=== PATIENT | female | born 1970 | race Caucasian/White ===

== ENCOUNTER → 2017-08-25 08:47 | Outpatient (CLI) | payer MEDICARE, SELFPAY ==
--- NOTE | 2017-08-25 | DI.CT.S_ITS ---
PROCEDURE: CT ABDOMEN PELVIS W CON INDICATIONS: Abdominal pain TECHNIQUE: After the administration of oral and intravenous contrast, 5 mm thick sections acquired from the diaphragms to the symphysis. 5 mm thick coronal and sagittal reformats were performed. For radiation dose reduction, the following was used: automated exposure control, adjustment of mA and/or kV according to patient size. Valsalva maneuver was utilized during the scanning. COMPARISON: [facility], CT, ABDOMEN WITHOUT CONTRAST, 02/20/2015, 11:40. [facility], CT, KIDNEY/ URETER/BLADDER, 05/26/2011, 16:04. FINDINGS: Image quality: Excellent. ABDOMEN: Lung bases: Lung bases are clear. Heart size is normal. Solid organs: Liver is normal in size and enhancement. Gallbladder has been previously resected. Biliary system is non-dilated. Pancreas enhances normally. Spleen is normal in size and enhancement. No adrenal nodules. Kidneys are normal in size and enhancement, without hydronephrosis. Peritoneum and bowel: Stomach, small bowel, and colon loops are normal in caliber and wall thickness. No free fluid or air. Nodes and vessels: No retroperitoneal or mesenteric adenopathy. Aorta and inferior vena cava are normal in caliber. Miscellaneous: No ventral hernias. PELVIS: Genitourinary: Bladder wall thickness is normal. There is a 3.3 cm left ovarian cyst, simple in appearance by CT criteria. 2 additional small cysts are seen in the uterine fundus area. Miscellaneous: No inguinal hernias or adenopathy. Bones: No suspicious bony lesions. No vertebral body compression fractures. IMPRESSION: No internal or body wall hernia is identified. A 3.3 cm left ovarian cyst, simple in appearance, and 2 small cysts at the upper uterine fundus measuring 8 mm and 13 mm respectively. A definite source of current abdominal pain is not seen. Dictated by: Brandyn Caceres M.D. on 08/25/2017 at 13:28 Approved by: Brandyn Caceres M.D. on 08/25/2017 at 13:35
== END ==
PROVIDERS: PCP Family Medicine; Visit Provider Surgery
DX: R10.9 Unspecified abdominal pain (principal); N83.202 Unspecified ovarian cyst, left side
CPT/HCPCS: 74177; Q9967

== ENCOUNTER 2017-10-06 13:54 | Observation (INO) | payer MEDICARE, SELFPAY ==
[2017-09-29 15:29] VITALS: BMI 38.0
[2017-10-05] VITALS (13 sets, daily range): BP systolic 113–138; BP diastolic 56–91; PULSE 78–93; RESP 14–20; TEMP 36.4–37.3; O2SAT 95–100; BMI 37.1
[2017-10-05] MEDS: LACTATED RINGERS 1,000 ML 100 ML IV (09:46)
--- NOTE | 2017-10-05 09:54 | PM.PREOP ---
Pre-operative Note Interval Note Pre-op Check: History & Physical Reviewed by Physician
--- NOTE | 2017-10-05 10:12 | PM.HP.1 ---
History of Present Illness Date Patient Seen: 10/05/17 Time Patient Seen: 10:12 Chief complaint: *OPB* [id number] [place] [id number] [facility] *OPB* Narrative: Patient is a 47-year-old scheduled for laparoscopic supracervical hysterectomy, bilateral salpingectomy, and excision of ovarian cysts This is being performed due to pelvic pain and myometrial cysts Patient History Medical History Anxiety (Chronic) Borderline hypertension (Chronic) Cervical spine disease (Chronic) Chronic pain (Chronic) Depression (Chronic) Factor V Leiden (Chronic) Fibromyalgia (Chronic) Head injury (Chronic 04/2017) Herpes (Chronic) History of headache (Chronic) Thyroid disorder (Chronic) TIA (transient ischemic attack) (Suspected 2012) Hematoma of right thigh (Resolved 2013) Colon's neuroma of left foot (Resolved 11/2010) Surgical History H/O carpal tunnel repair (Chronic) History of incisional hernia repair (Resolved 04/25/15) History of third molar tooth extraction (Resolved) S/P D&C (status post dilation and curettage) (Resolved 03/30/15) S/P endometrial ablation (Resolved 03/30/15) S/P foot surgery, left (Resolved 11/2010) Status post delivery (Resolved) Status post delivery (Resolved) Status post cholecystectomy (Resolved 2007) Status post dilation and curettage (Resolved) Status post laminectomy (Resolved 2014) Status post ovarian cystectomy (Resolved) Status post tonsillectomy and adenoidectomy (Resolved) Status post tubal ligation (Resolved) Family & Social History Tobacco & Substance use: Smoking Status Never smoker alcohol intake never Substance Use Type does not use Meds Home Medications Medication Instructions Recorded Confirmed Type escitalopram oxalate [Lexapro] 20 mg PO QDAY #90 tab 01/19/17 10/02/17 Rx albuterol sulfate [Ventolin HFA] 2 puff INH Q4H #1 ea 06/29/17 10/02/17 Rx trazodone 50 mg PO HS #90 tab 06/29/17 10/02/17 Rx acyclovir 400 mg PO SEE INSTRUCTIONS #90 tab 07/17/17 10/02/17 Rx levothyroxine [Synthroid] 0.075 mg PO QAM #90 tab 07/17/17 10/02/17 Rx enoxaparin 40 mg/0.4 mL 40 mg SUBCUT DAILY #5.6 ml 09/30/17 10/02/17 Rx subcutaneous syringe Allergies Allergy/AdvReac Type Severity Reaction Status Date / Time cephalexin [From KEFLEX] Allergy Severe ITCHING Unverified 10/02/17 14:32 cortez [CORTEZ] Allergy Severe ANAPHALATIC Unverified 10/02/17 14:32 Penicillins [PENICILLINS] Allergy Severe rash Unverified 10/02/17 14:32 Sulfa (Sulfonamide Allergy Severe rash Unverified 10/02/17 14:32 Antibiotics) [SULFA (SULFONAMIDE ANTIBIOTICS)] adhesive [ADHESIVE] Allergy Mild tape Unverified 10/02/17 14:32 bacitracin Allergy Mild rash Unverified 10/02/17 14:32 [From NEOSPORIN + PAIN RELIEF] erythromycin base Allergy Mild rash Unverified 10/02/17 14:32 [From ERYTHROCIN] fluoxetine [From PROZAC] Allergy Mild RASH, Unverified 10/02/17 14:32 NAUSEA ketorolac [KETOROLAC] Allergy Mild rash Unverified 10/02/17 14:32 neomycin Allergy Mild rash Unverified 10/02/17 14:32 [From NEOSPORIN + PAIN RELIEF] polymyxin B Allergy Mild rash Unverified 10/02/17 14:32 [From NEOSPORIN + PAIN RELIEF] pramoxine Allergy Mild rash Unverified 10/02/17 14:32 [From NEOSPORIN + PAIN RELIEF] promethazine [PROMETHAZINE] AdvReac Intermediate anxiety Unverified 10/02/17 14:32 Exam Vital Signs (past 8 hours): - 10/05/17 09:28 Temperature 97.6 F Pulse Rate 80 Respiratory Rate 16 Blood Pressure 133/91 H Pulse Oximetry 96 Oxygen Delivery Method Room Air Narrative Exam Narrative: HEENT: No thyromegaly, no anterior cervical or supraclavicular lymphadenopathy. Lungs:Clear to auscultation bilaterally, no wheezes. Cardiovascular: Regular rate and rhythm, no murmurs, rubs, or gallops. Abdomen: Well-healed Pfannenstiel scars. No hepatosplenomegaly. No masses palpable. External genitalia: Normal Vagina: Normal Cervix: Normal Bimanual exam: 10 Week size uterus. Mobile. Rectal: No masses. Assessment & Plan (1) Pelvic pain in female: Current visit: Yes Status: Acute Plan: Assessment/Plan Narrative: Assessment: 47-year-old with pelvic pain and myometrial cysts Status post endometrial ablation Ovarian cyst Plan: Laparoscopic supracervical hysterectomy with bilateral salpingectomy Excision of ovarian cysts The risks, benefits, and alternatives to the procedure were explained to the patient. The risks including bleeding, infection, injury to the bowel, bladder, or ureters. She also understands that there is a possibility of an open procedure. A full capital P AR-Q was held and consent form was signed.
--- NOTE | 2017-10-05 10:15 | P.HP_ITS ---
History of Present Illness Date Patient Seen: 10/05/17 Time Patient Seen: 10:12 Chief complaint: *OPB* [id number] [place] [id number] [facility] *OPB* Narrative: Patient is a 47-year-old scheduled for laparoscopic supracervical hysterectomy, bilateral salpingectomy, and excision of ovarian cysts This is being performed due to pelvic pain and myometrial cysts Patient History Medical History Anxiety (Chronic) Borderline hypertension (Chronic) Cervical spine disease (Chronic) Chronic pain (Chronic) Depression (Chronic) Factor V Leiden (Chronic) Fibromyalgia (Chronic) Head injury (Chronic 04/2017) Herpes (Chronic) History of headache (Chronic) Thyroid disorder (Chronic) TIA (transient ischemic attack) (Suspected 2012) Hematoma of right thigh (Resolved 2013) Colon's neuroma of left foot (Resolved 11/2010) Surgical History H/O carpal tunnel repair (Chronic) History of incisional hernia repair (Resolved 04/25/15) History of third molar tooth extraction (Resolved) S/P D&C (status post dilation and curettage) (Resolved 03/30/15) S/P endometrial ablation (Resolved 03/30/15) S/P foot surgery, left (Resolved 11/2010) Status post delivery (Resolved) Status post delivery (Resolved) Status post cholecystectomy (Resolved 2007) Status post dilation and curettage (Resolved) Status post laminectomy (Resolved 2014) Status post ovarian cystectomy (Resolved) Status post tonsillectomy and adenoidectomy (Resolved) Status post tubal ligation (Resolved) Family & Social History Tobacco & Substance use: Smoking Status Never smoker alcohol intake never Substance Use Type does not use Meds Home Medications Medication Instructions Recorded Confirmed Type escitalopram oxalate [Lexapro] 20 mg PO QDAY #90 tab 01/19/17 10/02/17 Rx albuterol sulfate [Ventolin HFA] 2 puff INH Q4H #1 ea 06/29/17 10/02/17 Rx trazodone 50 mg PO HS #90 tab 06/29/17 10/02/17 Rx acyclovir 400 mg PO SEE INSTRUCTIONS #90 tab 07/17/17 10/02/17 Rx levothyroxine [Synthroid] 0.075 mg PO QAM #90 tab 07/17/17 10/02/17 Rx enoxaparin 40 mg/0.4 mL 40 mg SUBCUT DAILY #5.6 ml 09/30/17 10/02/17 Rx subcutaneous syringe Allergies Allergy/AdvReac Type Severity Reaction Status Date / Time cephalexin [From KEFLEX] Allergy Severe ITCHING Unverified 10/02/17 14:32 cortez [CORTEZ] Allergy Severe ANAPHALATIC Unverified 10/02/17 14:32 Penicillins [PENICILLINS] Allergy Severe rash Unverified 10/02/17 14:32 Sulfa (Sulfonamide Allergy Severe rash Unverified 10/02/17 14:32 Antibiotics) [SULFA (SULFONAMIDE ANTIBIOTICS)] adhesive [ADHESIVE] Allergy Mild tape Unverified 10/02/17 14:32 bacitracin Allergy Mild rash Unverified 10/02/17 14:32 [From NEOSPORIN + PAIN RELIEF] erythromycin base Allergy Mild rash Unverified 10/02/17 14:32 [From ERYTHROCIN] fluoxetine [From PROZAC] Allergy Mild RASH, Unverified 10/02/17 14:32 NAUSEA ketorolac [KETOROLAC] Allergy Mild rash Unverified 10/02/17 14:32 neomycin Allergy Mild rash Unverified 10/02/17 14:32 [From NEOSPORIN + PAIN RELIEF] polymyxin B Allergy Mild rash Unverified 10/02/17 14:32 [From NEOSPORIN + PAIN RELIEF] pramoxine Allergy Mild rash Unverified 10/02/17 14:32 [From NEOSPORIN + PAIN RELIEF] promethazine [PROMETHAZINE] AdvReac Intermediate anxiety Unverified 10/02/17 14: 32 Exam Vital Signs (past 8 hours): - 10/05/17 09:28 Temperature 97.6 F Pulse Rate 80 Respiratory Rate 16 Blood Pressure 133/91 H Pulse Oximetry 96 Oxygen Delivery Method Room Air Narrative Exam Narrative: HEENT: No thyromegaly, no anterior cervical or supraclavicular lymphadenopathy. Lungs:Clear to auscultation bilaterally, no wheezes. Cardiovascular: Regular rate and rhythm, no murmurs, rubs, or gallops. Abdomen: Well-healed Pfannenstiel scars. No hepatosplenomegaly. No masses palpable. External genitalia: Normal Vagina: Normal Cervix: Normal Bimanual exam: 10 Week size uterus. Mobile. Rectal: No masses. Assessment & Plan (1) Pelvic pain in female: Current visit: Yes Status: Acute Plan: Assessment/Plan Narrative: Assessment: 47-year-old with pelvic pain and myometrial cysts Status post endometrial ablation Ovarian cyst Plan: Laparoscopic supracervical hysterectomy with bilateral salpingectomy Excision of ovarian cysts The risks, benefits, and alternatives to the procedure were explained to the patient. The risks including bleeding, infection, injury to the bowel, bladder , or ureters. She also understands that there is a possibility of an open procedure. A full capital P AR-Q was held and consent form was signed.
[2017-10-05] MEDS: CLINDAMYCIN 900 MG/50 ML PIGGYBACK 50 MG IV (10:55)
[2017-10-05] MEDS: BUPIVACAINE 0.5% W/ EPI (PF) 30 ML VIAL INJ (11:13)
--- NOTE | 2017-10-05 11:33 | SUR.OPER ---
Lithotomy on padded OR bed. [place] Pad Positioner under torso. Head on pillow, arms padded and tucked at sides. Legs secured in padded yellow fins stirrups.
[2017-10-05] MEDS: ROPIVACAINE 0.2% PF 2 MG/ML 10ML AMP 20 ML INJ (11:44)
--- NOTE | 2017-10-05 11:44 | PC.NURSE ---
Day shift: Pt not on AC unit at this time. Will do charting after Pt is seen by this entry writer.
--- NOTE | 2017-10-05 11:59 | PM.GYNOP.1 ---
Operative Date/Time/Diagnoses - Date of procedure: 10/05/17 Time of procedure: 11:59 Pre-op diagnosis: Pelvic pain Post-op diagnosis: same Procedure: Procedures Operation Date: 10/05/17 10:15 Actual Procedures Side Surgeon p Laparoscopic Supracervical Hysterectomy with Bilateral salpingectomy Not Applicable Hoa Galdamez MD Indications: Pelvic pain Surgeon: Hoa Galdamez Business Mail Entry Clerk: Edgar Ceballos Anesthesia Type: General and Local Operative Notes Findings: 6 week size anteverted uterus 1 cm simple ovarian cyst on the left ovary Tubes status post ligation bilaterally Normal liver Closure Type: primary Specimen(s): left tube, right tube and uterus Applied: catheter Estimated blood loss (mL): 5 Blood products transfused: none Procedure in detail: The patient was taken to the operating room where she was placed in the dorsal supine position. After adequate general endotracheal anesthesia was achieved, she was placed in the dorsal lithotomy position, and prepped and draped in the usual sterile fashion. A timeout was performed. A bivalve speculum was placed into the vagina and the anterior lip of the cervix grasped with a single-tooth tenaculum. The cervical os was sequentially dilated until the ZUMI uterine manipulator could pass easily into the endometrial cavity. The single-tooth tenaculum was removed from the anterior lip of the cervix, and the bivalve speculum was removed from the vagina. Attention was then turned to the abdomen where 6 mL of half percent Marcaine with epinephrine were injected in the umbilical fold. A 5 mm incision was made. The long Verhees needle was placed into the peritoneal cavity, and its placement confirmed by aspiration and drop test. The Verhees needle was removed. A long5 mm trocar was placed without difficulty. 2 other incisions were made midway between the pubic symphysis and umbilicus after 5 mL of half percent Marcaine with epinephrine were injected. These were 5 mm incisions. Two long 5 mm trochars were placed under direct visualization. The right tube was grasped with an atraumatic grasper. Using the plasma kinetic with settings of 40 W the mesosalpinx was cauterized and cut all the way down to the cornua of the uterus. The cornua of the uterus was then grasped with an atraumatic grasper. The utero-ovarian ligaments were cauterized and cut. The round ligament and broad ligament was cauterized and cut with plasma kinetic. Hemostasis was achieved. The bladder flap was created using the plasma kinetic with cautery and cut snf across. The uterine arteries on the right side were extensively cauterized with plasma kinetic. All of this was repeated on the left side. The remainder of the bladder flap was created using the plasma kinetic, and the bladder taken down off the lower uterine segment and cervix. The simple cyst on the left ovary was cauterized. Using the [place], the cervix was amputated from the uterus 2 cm above the uterosacral ligaments, after the ZUMI uterine manipulator was removed from the uterus. There was a small amount of bleeding noted from the posterior edge of the cervix, and this was cauterized for hemostasis. A sponge stick was placed into the vagina. 6 mL of half percent Marcaine with epinephrine were injected above the pubic symphysis. A 12 mm trocar was placed. The trocar was removed. The fascial incision was extended bluntly using a Sonya. An Endobag was placed through the suprapubic incision and the uterus placed into the Endobag. The Hamilton placed into the endobag. The uterus was hand morcellated in approximately 4 pieces. The Hamilton was removed from the bag. The Endobag was removed from the peritoneal cavity. The pelvis was copiously irrigated with warm normal saline. No bleeding was noted. The instruments were removed from the abdomen. The CO2 was allowed to escape. The suprapubic incision was closed on the fascia with 0 Vicryl. The subcutaneous layer was closed with 3 O Vicryl. All of the incisions were closed with 4-0 undyed Vicryl in a subcuticular fashion. Steri-Strips, 2 x 2 days, and op site were placed. The moistened sponge stick was removed from the vagina. Sponge, lap, and instrument counts were correct x-2. The patient tolerated the procedure well, was taken to PACU in stable condition. Complications: none Post-operative Condition: stable Disposition: PACU Plan for aftercare: To acute care after recovery
[2017-10-05] MEDS: HYDROMORPHONE 2 MG INJ 1 MG IM ×2 (12:16→12:22)
[2017-10-05] MEDS: ONDANSETRON 4 MG/2 ML INJ IV ×3 (12:19→23:00)
[2017-10-05] MEDS: LORazepam 2 MG/ML SYRINGE 0.25 MG IV (12:23)
[2017-10-05] MEDS: LACTATED RINGERS 1,000 ML 42 ML IV (12:26)
--- NOTE | 2017-10-05 13:04 | PC.NURSE ---
Day shift: Arrived on unit at approx 1245 from PACU. Lap sites CDI w/ no drainage. Heike p[atent w/ clear yellow. Agrees to not get OOB w/o help. SCD's tolerated. Grape Popsicle helping get rid of bad taste in mouth. Calm and cooperative w/ care. Daughter in room for support w/ Pt's 2 service dogs. VS ok. SpO2 95 RA. Oriented to room and call light. Call light in reach. Shown how to use I.S. as well.
[2017-10-05] MEDS: OXYCODONE/ACETAMINOPHEN 5/325 TABLET 2 TAB PO ×3 (13:28→21:06)
[2017-10-05] MEDS: DEXTROSE 5%-LACTATED RINGERS 1,000 ML 100 ML IV (13:28)
[2017-10-05] MEDS: KETOROLAC 30 MG/ML VIAL IV ×2 (13:40→17:34)
--- NOTE | 2017-10-05 14:27 | RT ---
Visited patient regarding her respiratory hx. Patient states she has reactive airway disease and only takes albuterol inhaler when needed. She states that the last time she took her inhaler was a month or more ago. Informed patient that she currently has an order for q4 hr Albuterol and patient stated that she did not want that, only for it to be available when needed. Will attempt to reach MD Galdamez and get authorization to change this to a prn order.
[2017-10-05] MEDS: METOCLOPRAMIDE 10 MG/2 ML INJ IV (17:37)
[2017-10-05] MEDS: DOCUSATE 250 MG CAPSULE PO (21:02)
[2017-10-05] MEDS: TRAZODONE 50 MG TABLET PO (21:02)
[2017-10-06] MEDS: KETOROLAC 30 MG/ML VIAL IV ×2 (00:04→05:08)
[2017-10-06] MEDS: DEXTROSE 5%-LACTATED RINGERS 1,000 ML 100 ML IV (00:05)
[2017-10-06] MEDS: OXYCODONE/ACETAMINOPHEN 5/325 TABLET 2 TAB PO ×5 (01:17→20:05)
[2017-10-06] MEDS: ONDANSETRON 4 MG/2 ML INJ IV ×3 (05:02→19:59)
[2017-10-06 05:15] VITALS: BP 111/59; PULSE 83; RESP 16; TEMP 36.7; O2SAT 99
[2017-10-06 06:05] LABS: Add Manual Diff / Slide Review NO; Basophils Percent Auto 0.1 % (0-2); Hematocrit 40.9 % (36-46); Hemoglobin 14.3 g/dL (12.0-16.0); Lymphocytes Percent Auto 7.1 % (25-40); Mean Corpuscular HGB Conc 34.9 % (30-36); Mean Corpuscular Hemoglobin 30.6 PG (26-34); Mean Corpuscular Volume 87.8 fL (80-100); Neutrophils Absolute Auto 10800 /uL (3000-5900); Neutrophils Percent Auto 85.8 % (50-75); Platelet Count 223 X10^3/uL (150-400); Red Blood Cell Count 4.66 X10^6/uL (4.0-5.2); Red Cell Distribution Width 12.3 % (11.6-14.8); White Blood Cell Count 12.6 X10^3/uL (4.5-11.0)
--- NOTE | 2017-10-06 06:55 | PC.NURSE ---
Addendum entered by Sayra Julien R.N. 10/06/17 06:58: Noticed in tordal is listed as an allergy. Asked pt which she replied no adverse reactions to previous doses. And reported adverse reaction from before hospital stay was mild rash/ itch. No adverse reaction noticed at this time. Pt also report reaction to regulan of severe itching. Will update allergy list. Original Note: [id number] Pt's dillon D/C at 0630. Femine pad had scant light sangousis blood loss estimated no greater than 1mL.
[2017-10-06 08:00] VITALS: BP 116/69; PULSE 85; RESP 16; TEMP 37; O2SAT 99
--- NOTE | 2017-10-06 09:58 | PC.NURSE ---
Day shift: Pt asleep. Did not give AM meds. Will give when she wakes up. She has voided >500ml this AM as well. Makes needs known proper. Call light in reach.
[2017-10-06] MEDS: DOCUSATE 250 MG CAPSULE PO (11:39)
[2017-10-06] MEDS: ENOXAPARIN 40 MG/0.4 ML SYRINGE SUBCUT (11:39)
[2017-10-06] MEDS: LEVOTHYROXINE 75 MCG TABLET PO (11:40)
[2017-10-06] MEDS: ESCITALOPRAM 10 MG TABLET 20 MG PO (11:40)
[2017-10-06] MEDS: IBUPROFEN 600 MG TABLET PO ×2 (12:53→22:50)
--- NOTE | 2017-10-06 15:21 | CM.DANOTE ---
DCP/Assessment: Reviewed chart. Patient is a 47yr old female admitted under [facility] for [facility] surgery performed by Dr. Galdamez. PCP is Dr. Cook. Primary payor is 1)Medicare. Met with patient explained CM/SW role. Patient alert and oriented during visit but uncomfortable with wash cloth over forehead. Patient also with 2 service dogs and friend Sanchez at bedside. Patient reports that she plans to return home when medically stable. Patient resides in [place] and has supportive family/friends nearby. Patient owns cane but does not use at baseline. Patient anticipates that she will need when she returns home. Patient changed to OBS status today. D/C anticipated within the next 24hrs. if medically stable. Patient does not anticipate any d/c planning needs. WALLPAPER INSTALLER left name/number of CM team on white board. P: Anticipate home when stable. CM team to follow closely. TIM Sainz Discharge Planning/Care Management CM Discharge Assessment Start: 10/06/17 15:16 Freq: Status: Active Protocol: Document 10/06/17 15:17 KJS (Rec: 10/06/17 15:21 KJS [id number]) Discharge Planning Assessment Assigned Garage Laborer TIM/Mildred History Provided By Patient Friend Has Patient been admitted in last 30 No days? Household Members family Type of transporation used prior to Drives own vehicle admit Comment Patient disabled and has 2 service dogs. Patient has had several surgeries. Independent with ADL's Yes Is patient alert and oriented? Yes Caregiver for Another No DME Already Rented / Owned Cane Discharge Plan Home Review Status In Process Next Review Type Discharge Review
[2017-10-06 16:03] VITALS: BP 138/91; PULSE 71; RESP 16; TEMP 36.8; O2SAT 96
[2017-10-06 19:55] VITALS: BP 135/77; RESP 18; TEMP 36.8; O2SAT 97
[2017-10-06] MEDS: ACYCLOVIR 400 MG TABLET PO (20:05)
[2017-10-06] MEDS: TRAZODONE 100 MG TABLET PO (22:49)
[2017-10-06 23:00] VITALS: O2SAT 98
[2017-10-07] VITALS (9 sets, daily range): BP systolic 121–131; BP diastolic 70–82; PULSE 65–69; RESP 14–20; TEMP 36.4–36.9; O2SAT 95–100
[2017-10-07] MEDS: OXYCODONE/ACETAMINOPHEN 5/325 TABLET 2 TAB PO ×5 (00:10→22:33)
[2017-10-07] MEDS: ONDANSETRON 4 MG/2 ML INJ IV ×4 (02:15→22:33)
--- NOTE | 2017-10-07 04:49 | PC.NURSE ---
sba to br, after pt request to go for a walk in [place] sba w/fww & DEMOLITION SPECIALIST, steady on her feet. prior to getting oob pain rated 6/10, 2 percocet given. after movement pain initially up to 9-10, back to bed after walk, pain receck = 8/10, states walked to [facility] station and felt a little dizzy came back to w/DEMOLITION SPECIALIST,dizziness resolved after short rest fresh ice pack given for surgical site, pain decr'd to 6/10 once percocet kicked in.
--- NOTE | 2017-10-07 07:55 | PM.PNPO.1 ---
Subjective Date Patient Seen: 10/06/17 Time Patient Seen: 13:32 Interval history: Patient is a 47-year-old postop # day 1. Status post laparoscopic supracervical hysterectomy and bilateral salpingectomy. Her pain is being adequately managed. She is having significant nausea this afternoon. She has not ambulated. She is tolerating a diet. Exam Vital Signs (past 8 hours): - 10/07/17 00:37 10/07/17 04:46 Temperature 98.4 F 97.8 F Pulse Rate 69 66 Respiratory Rate 14 16 Blood Pressure 127/70 H 131/76 H Pulse Oximetry 98 96 Oxygen Delivery Method Room Air Oxygen Flow Rate 0 Narrative Exam Narrative: Generally: Patient lying in bed, no acute distress Lungs: Clear to auscultation bilaterally Cardiovascular: Regular rate and rhythm Abdomen: Soft, good bowel sounds. Incisions: Clean dry and intact with op site Extremities: SCDs in place Objective Labs Result Diagrams: 10/06/17 05:18 Assessment & Plan Post-op (1) Status post laparoscopic supracervical hysterectomy: Current Visit: Yes Status: Acute Assessment and plan: Assessment: Postop day # 1. Status post laparoscopic supracervical hysterectomy with bilateral salpingectomy Persistent nausea Plan: Antiemetics Ambulation Anticipate discharge 10/07/2017 Postoperative Procedures Operation Date: 10/05/17 10:15 Actual Procedures Side Surgeon p Laparoscopic Supracervical Hysterectomy with Bilateral salpingectomy Not Applicable Hoa Galdamez MD Time Spent With Patient 25 - 35 minutes
[2017-10-07] MEDS: LEVOTHYROXINE 75 MCG TABLET PO (10:40)
[2017-10-07] MEDS: ENOXAPARIN 40 MG/0.4 ML SYRINGE SUBCUT (10:40)
[2017-10-07] MEDS: ESCITALOPRAM 10 MG TABLET 20 MG PO (10:40)
[2017-10-07] MEDS: DOCUSATE 250 MG CAPSULE PO ×2 (10:41→21:04)
[2017-10-07] MEDS: ACYCLOVIR 400 MG TABLET PO ×2 (10:41→21:04)
--- NOTE | 2017-10-07 13:54 | PC.NURSE ---
Pt slept until 1300
--- NOTE | 2017-10-07 13:54 | PC.NURSE ---
Addendum entered by Annette Alonzo R.N. 10/07/17 15:51: pt complained of vertigo when ambulating, sat back down and resolved. Pt does have a history of vertigo. She is sleeping soundly now. Original Note: Pt slept until 1030 this morning. Given Zofran and 2 percocet with am meds. Ambulated in halls and became dizzy. Pt has a hx of vertigo. Sat back down into wheelchair after ambulating and back to bed. Pt up and voided. Steady on feet with fww. into see patient and will be back later this afternoon to see her. 4 bandaide dressings to abdomen all cdi.
--- NOTE | 2017-10-07 17:51 | PM.PNPO.1 ---
Subjective Date Patient Seen: 10/07/17 Time Patient Seen: 17:51 Interval history: Patient tolerating a diet. She is significantly dizzy upon standing and walking. She is voiding without the catheter. Pain is well controlled. Exam Vital Signs (past 8 hours): - 10/07/17 11:32 10/07/17 16:56 10/07/17 17:25 Temperature 97.7 F 97.9 F Pulse Rate 66 69 Respiratory Rate 16 20 Blood Pressure 121/74 H 129/82 H Pulse Oximetry 98 95 97 Oxygen Delivery Method Room Air Oxygen Flow Rate 0 Narrative Exam Narrative: Generally: Patient is sitting up in bed, eating dinner, no acute distress Abdomen: Incisions clean dry and intact with op sites Extremities: SCDs in place Objective Labs Result Diagrams: 10/06/17 05:18 Assessment & Plan Post-op (1) Status post laparoscopic supracervical hysterectomy: Current Visit: Yes Status: Acute Assessment and plan: Assessment: 47-year-old postop day # 2 status post laparoscopic supracervical hysterectomy with continued dizziness upon standing and walking Plan: Plan discharge in the morning of 10/08/2017 Postoperative Procedures Operation Date: 10/05/17 10:15 Actual Procedures Side Surgeon p Laparoscopic Supracervical Hysterectomy with Bilateral salpingectomy Not Applicable Hoa Galdamez MD Postoperative day: 2 Postoperative status: other (Dizziness on standing and walking) Postoperative plan: routine post-op care Time Spent With Patient 25 - 35 minutes
[2017-10-07] MEDS: IBUPROFEN 600 MG TABLET PO (18:40)
[2017-10-07] MEDS: TRAZODONE 100 MG TABLET PO (21:04)
[2017-10-08] MEDS: IBUPROFEN 600 MG TABLET PO ×2 (01:26→11:23)
[2017-10-08 01:44] VITALS: BP 107/69; PULSE 62; RESP 15; TEMP 36.3; O2SAT 95
[2017-10-08] MEDS: OXYCODONE/ACETAMINOPHEN 5/325 TABLET 2 TAB PO ×3 (02:50→11:22)
[2017-10-08 04:20] VITALS: BP 132/80; PULSE 59; RESP 16; TEMP 36.6; O2SAT 96
[2017-10-08] MEDS: ONDANSETRON 4 MG/2 ML INJ IV ×2 (04:35→11:22)
[2017-10-08 04:51] VITALS: BP 132/80; PULSE 59; RESP 16; TEMP 36.6; O2SAT 96
[2017-10-08 08:00] VITALS: BP 113/47; PULSE 74; RESP 14; TEMP 36.8; O2SAT 98
[2017-10-08 08:40] VITALS: O2SAT 98
[2017-10-08] MEDS: ESCITALOPRAM 10 MG TABLET 20 MG PO (08:57)
[2017-10-08] MEDS: ACYCLOVIR 400 MG TABLET PO (08:57)
[2017-10-08] MEDS: DOCUSATE 250 MG CAPSULE PO (08:57)
[2017-10-08] MEDS: ENOXAPARIN 40 MG/0.4 ML SYRINGE SUBCUT (08:57)
[2017-10-08] MEDS: LEVOTHYROXINE 75 MCG TABLET PO (08:57)
[2017-10-08] MEDS: MAGNESIUM HYDROXIDE 30 ML UDC PO (08:57)
--- NOTE | 2017-10-08 14:02 | PC.NURSE ---
pt c/o pain and nausea. medicated with ibuprofen, zofran and percocet around 1130. pain did not get better on reassessment as she just got out of shower. however she was up moving around the room. she did finally have a BM, very large per pt report. d/c instructions provided to pt and friend. notified to call MD office to make f/u apt as well as if there are any other issues or concerns. Rx for percocet was provided to friend to go get filled and Rx for zofran was called into pharmacy from pt's PCP. pt left the floor around 1400 in a w/c with [employer] escort. States she took all her belongings with her.
--- NOTE | 2017-10-09 11:23 | PM.DS.1 ---
History of Present Illness Chief complaint: *OPB* [address] [place] [id number] [facility] *OPB* Narrative: Patient is a 47-year-old status post laparoscopic supracervical hysterectomy and bilateral salpingectomy for pelvic pain Discharge Providers Date of admission: 10/06/17 13:54 Primary care physician: Kalyani Cook MD Discharge provider: Hoa Galdamez MD Summary Discharge Diagnosis: Status post laparoscopic supracervical hysterectomy and bilateral salpingectomy Pelvic pain Hospital Course: Patient was admitted on 10/05/2017 for a scheduled laparoscopic supracervical hysterectomy with bilateral salpingectomy. On postop day # 1 patient had significant nausea and required another hospital day. On postop day # 2 patient had some dizziness on standing and walking which required another in hospital night stay Status at Discharge Functional status at discharge: independent ambulation Overall status at discharge: patient is progressing back to baseline Time Spent with Patient Less than 30 minutes Exam Vital Signs (past 8 hours): Oxygen Delivery Method Room Air Oxygen Flow Rate 0 Narrative Exam Narrative: Generally: A well-developed, well-nourished white female, no acute distress. Patient lying in bed Lungs: Clear to auscultation bilaterally Cardiovascular: Regular rate and rhythm Abdomen: Soft and flat. Good bowel sounds Incisions: Clean dry and intact with op site Extremities: SCDs in place Objective Labs Result Diagrams: 10/06/17 05:18 Discharge Plan Discharge Plan Patient Disposition: Home, Self-Care Discharge comment: Call with fever, chills or redness or drainage around incisions Ibuprofen 600mg every 6 hours as needed Discharge Med Rec/Prescriptions Prescriptions: New oxycodone-acetaminophen [Percocet] 5-325 mg tablet 2 tab PO Q4-6H PRN (Reason: pain) Qty: 30 RF: 0 Continue escitalopram oxalate [Lexapro] 20 MG tablet 20 mg PO QDAY Qty: 90 RF: 3 trazodone 50 MG tablet 50 mg PO HS Qty: 90 RF: 3 albuterol sulfate [Ventolin HFA] 90 MCG/PUFF HFA aerosol inhaler 2 puff INH Q4H Qty: 1 RF: 12 acyclovir 400 MG tablet 400 mg PO SEE INSTRUCTIONS Qty: 90 RF: 3 levothyroxine [Synthroid] 75 MCG tablet 0.075 mg PO QAM Qty: 90 RF: 3 enoxaparin [Lovenox] 40 mg/0.4 mL syringe 40 mg SUBCUT DAILY Qty: 5.6 RF: 0 No Action ondansetron 4 mg tablet,disintegrating 4 mg PO Q6-8H PRN (Reason: nausea and vomiting) Qty: 30 RF: 0 Follow up/Referrals: Hoa Galdamez MD [Physician] - Provider Discharge Instructions Diet: Diet as Tolerated Activity: No intercourse Wound Care Report to your healthcare provider any signs of infection, such as:: chills, fever, increased pain and unusual drainage Dressing: Remove outer plastic dressings and guaze after first shower Visit Report/Discharge Packet Instructions: DI for Hysterectomy, Oxycodone Stand Alone Forms: Surgery Discharge Visit Report Forms: Stroke Signs & Symptoms Discharge Data Primary Care Provider: Kalyani Cook Attending Provider: Hoa Galdamez Admit Date/Time: 10/06/17 13:54 Discharges patient from system. Discharge Date/Time: 10/08/17 14:00
== END 2017-10-08 14:00 | disposition home or self-care (01) ==
LOC: OR 10-08 07:30
PROVIDERS: Admitting Provider Obstetrics & Gynecology; PCP Family Medicine; Visit Provider Obstetrics & Gynecology
PROC: 0UT94ZL Resection of Uterus, Supracervical, Percutaneous Endoscopic Approach (ICD-10-PCS; CPT 58542; principal; 2017-10-05 10:15)
DX: N83.292 Other ovarian cyst, left side (principal); Z87.42 Personal history of other diseases of the female genital tract; R10.2 Pelvic and perineal pain; F41.9 Anxiety disorder, unspecified; M79.7 Fibromyalgia; D68.51 Activated protein C resistance; G89.29 Other chronic pain
CPT/HCPCS: 58542; 36415; 85025; G0378; J1100; J1170; J1650; J1885; J2060; J2250; J2405; J2704; J2765; J2795; J3010; J7121

== ENCOUNTER → 2017-12-07 08:59 | Outpatient (CLI) | payer MEDICARE, SELFPAY ==
[2017-10-05 13:09] VITALS: BMI 37.1
--- NOTE | 2017-12-07 09:02 | DI.US.S_ITS ---
ULTRASOUND OF RIGHT BREAST: 12/07/2017 CLINICAL: Palpable right breast lump. Comparison is made to exams dated: 12/07/2017 mammogram, 05/05/2017 mammogram, and 04/27/2014 mammogram - [facility]. Color flow ultrasound of the right breast was performed. Fitch scale images of the real-time examination were reviewed. IMPRESSION: NEGATIVE There is no sonographic evidence of malignancy. There is no abnormality seen in the right breast to correspond with the area of clinical concern, however, clinical correlation and clinical followup are recommended. A 1 year screening mammogram is recommended. This exam was interpreted at Station ID: [id number]. Electronically Signed By: Jose Sol M.D. cj/:12/07/2017 11:33:34 copy to: HEDY MCADAMS copy to: ANTHONY LENTZ letter sent: Clinical Evaluation Ultrasound BI-RADS: 1 Negative
--- NOTE | 2017-12-07 09:02 | DI.MG.S_ITS ---
UNILATERAL RIGHT DIGITAL DIAGNOSTIC MAMMOGRAM 3D/2D: 12/07/2017 CLINICAL: Right breast lump with pain. Comparison is made to exams dated: 05/05/2017 mammogram, 04/27/2014 mammogram, and 04/22/2013 mammogram - [facility]. The tissue of the right breast is predominantly fatty. No significant masses, calcifications, or other findings are seen in the breast. IMPRESSION: INCOMPLETE: NEEDS ADDITIONAL IMAGING EVALUATION There is no abnormality seen in the right breast to correspond with the area of clinical concern, however, ultrasound is recommended. This exam was interpreted at Station ID: [id number]. NOTE: For mammograms, a report in lay terms will be sent to the patient. Approximately 15% of breast malignancies will not be visualized mammographically. In the management of a palpable breast mass, a negative mammogram must not discourage biopsy of a clinically suspicious lesion. Electronically Signed By: Jose robles/lb:12/07/2017 11:33:07 copy to: HEDY MCADAMS copy to: ANTHONY LENTZ ACR BI-RADS Category 0: Incomplete [id number]
== END ==
PROVIDERS: PCP Internal Medicine; Visit Provider Internal Medicine
DX: R92.8 Other abnormal and inconclusive findings on diagnostic imaging of breast (principal); N64.4 Mastodynia; N63.10 Unspecified lump in the right breast, unspecified quadrant
CPT/HCPCS: 76642; 77065; G0279

== ENCOUNTER 2018-01-02 08:49 | Emergency (ER) | payer MEDICARE, SELFPAY ==
[2017-10-05 13:09] VITALS: BMI 37.1
--- NOTE | 2018-01-02 09:07 | DI.CT.S_ITS ---
PROCEDURE: CT HEAD/BRAIN WO CON INDICATIONS: headache TECHNIQUE: Noncontrast 4.5 mm thick angled axial sections acquired from the foramen magnum to the vertex, with coronal and sagittal reformats. For radiation dose reduction, the following was used: automated exposure control, adjustment of mA and/or kV according to patient size. COMPARISON: [facility], MR, STROKE PROTOCOL, 10/16/2011, 11:59. [facility], CT, HEAD WITHOUT CONTRAST, 02/06/2009, 11:59. [facility], CT, HEAD WITHOUT CONTRAST, 04/23/2017, 16:23. FINDINGS: Image quality: Excellent. CSF spaces: Basal cisterns are patent. No extra-axial fluid collections. Ventricles are normal in size and shape. Brain: No midline shift. No intracranial masses or hemorrhage. Fitch-white matter interface is normal. Skull and face: Calvarium and visualized facial bones are intact, without suspicious lesions. Sinuses: Visualized sinuses and mastoids are clear. IMPRESSION: Normal intracranial study. Stable from prior. Dictated by: Federico Garcia M.D. on 01/02/2018 at 9:59 Approved by: Federico Garcia M.D. on 01/02/2018 at 10:00
[2018-01-02 09:15] VITALS: BP 149/99; PULSE 87; RESP 12; TEMP 36.7; O2SAT 96; BMI 37.4
--- NOTE | 2018-01-02 09:32 | ED_ITS ---
HPI - Headache General Chief Complaint: Headache Stated Complaint: headache Time Seen by Provider: 01/02/18 08:50 Source: patient and family Mode of arrival: ambulatory Limitations: no limitations History of Present Illness HPI Narrative: 47-year-old nonsmoker with history of chronic neck and back pain presents to the emergency department with a chief complaint of a few days of the worst headache of her life. It has been gradually worsening and started at the base of her skull in now wraps around to the front. She has had a history of headaches and this presents a bit different than those. She does state that it is worse with bright lights, loud noises and motion. She states that her symptoms started after seeing a chiropractor a few days ago. She denies any neurologic symptoms such as blurred vision, trouble with speech nor numbness, tingling or weakness of her extremities. MD Complaint: headache Onset (ago): day(s) Onset description: gradual Location: frontal and occipital Severity: severe Quality: aching and throbbing Relieving factors: nothing Exacerbating factors: sitting/standing, light and noise Associated symptoms: nausea Treatments prior to arrival: prescription analgesic Related Data Previous Rx's Medication Instructions Recorded escitalopram oxalate [Lexapro] 20 mg PO QDAY #90 tab 01/19/17 albuterol sulfate [Ventolin HFA] 2 puff INH Q4H #1 ea 06/29/17 trazodone 50 mg PO HS #90 tab 06/29/17 acyclovir 400 mg PO SEE INSTRUCTIONS #90 tab 07/17/17 levothyroxine [Synthroid] 0.075 mg PO QAM #90 tab 07/17/17 enoxaparin 40 mg/0.4 mL 40 mg SUBCUT DAILY #5.6 ml 09/30/17 subcutaneous syringe ondansetron 4 mg disintegrating 4 mg PO Q6-8H PRN #30 tab 10/08/17 tablet trazodone 100 mg tablet 100 mg PO BEDTIME #30 tab 10/27/17 oxycodone-acetaminophen 5 mg-325 2 tab PO Q4-6H PRN #30 tab 11/18/17 mg tablet Allergies Allergy/AdvReac Type Severity Reaction Status Date / Time cephalexin [From KEFLEX] Allergy Severe ITCHING Verified 01/02/18 09:52 neomycin Allergy Mild rash Verified 01/02/18 09:56 [From NEOSPORIN + PAIN RELIEF] polymyxin B Allergy Mild rash Verified 01/02/18 09:56 [From NEOSPORIN + PAIN RELIEF] pramoxine Allergy Mild rash Verified 01/02/18 09:56 [From NEOSPORIN + PAIN RELIEF] fluoxetine [From PROZAC] AdvReac Intermediate Agitated Verified 01/02/18 09:52 promethazine [PROMETHAZINE] AdvReac Intermediate anxiety Verified 01/02/18 09:56 Review of Systems Review of Systems All systems reviewed & are unremarkable except as noted in HPI and below Constitutional Denies chills, Denies fever(s), Reports headache(s), Denies lethargy and Denies weakness Eyes Denies change in vision, Denies eye discharge, Denies irritation and Denies loss of vision ENT Ears, Nose, Mouth, and Throat: Denies change in voice, Reports headache(s), Denies neck pain and Denies sore throat Cardiovascular Denies chest pain, Denies irregular heart rhythm, Denies lightheadedness, Denies palpitations, Denies dyspnea, Denies dyspnea on exertion and Denies orthopnea Respiratory Denies cough, Denies dyspnea, Denies dyspnea on exertion and Denies wheezing Gastrointestinal Gastrointestinal: Denies abdominal pain, Denies change in bowel habits, Denies diarrhea, Reports nausea and Denies vomiting Genitourinary Denies hematuria, Denies flank pain, Denies urinary incontinence and Denies urinary urgency Musculoskeletal Denies neck pain Integumentary/Breasts Denies pruritus, Denies erythema, Denies rash and Denies wounds Neurologic Denies confusion, Reports headache(s), Denies loss of vision and Denies weakness Psychiatric Denies anxiety, Denies confusion, Denies depression, Denies homicidal ideation and Denies suicidal ideation Endocrine Denies palpitations Hematologic/Lymphatic Denies easy bruising Allergic/Immunologic Denies wheezing [facility] Medical History Anxiety (Chronic) Borderline hypertension (Chronic) Cervical spine disease (Chronic) Chronic pain (Chronic) Depression (Chronic) Factor V Leiden (Chronic) Fibromyalgia (Chronic) Head injury (Chronic 04/2017) Herpes (Chronic) History of headache (Chronic) Thyroid disorder (Chronic) TIA (transient ischemic attack) (Suspected 2012) Hematoma of right thigh (Resolved 2013) Colon's neuroma of left foot (Resolved 11/2010) Surgical History H/O carpal tunnel repair (Chronic) H/O bilateral salpingectomy (Resolved 10/05/17) History of incisional hernia repair (Resolved 04/25/15) History of third molar tooth extraction (Resolved) S/P D&C (status post dilation and curettage) (Resolved 03/30/15) S/P endometrial ablation (Resolved 03/30/15) S/P foot surgery, left (Resolved 11/2010) S/P laparoscopic supracervical hysterectomy (Resolved 10/05/17) Status post delivery (Resolved) Status post delivery (Resolved) Status post cholecystectomy (Resolved 2007) Status post dilation and curettage (Resolved) Status post laminectomy (Resolved 2014) Status post ovarian cystectomy (Resolved) Status post tonsillectomy and adenoidectomy (Resolved) Status post tubal ligation (Resolved) Family History Mother Hypertension Breast CA Father CVA (cerebral vascular accident) Diabetes mellitus Hypothyroidism Obesity Grandfather Prostate cancer Bone cancer Social History household members: family Smoking Status: Never smoker Exam Narrative Exam Narrative: GENERAL: Pleasant 47-year-old female in a dark room with her vazquez pulled up over her eyes, obviously uncomfortable HEAD: Atraumatic. Normocephalic. No temporal or scalp tenderness. EYES: Pupils equal round and reactive. Extraocular motions intact. No scleral icterus. No injection or drainage. ENT: Nose without bleeding, purulent drainage or septal hematoma. Throat without erythema, tonsillar hypertrophy or exudate. Uvula midline. Airway patent. NECK: Trachea midline. No JVD or lymphadenopathy. Supple, nontender, no meningeal signs. CARDIOVASCULAR: Regular rate and rhythm without murmurs, gallops, or rubs. RESPIRATORY: Clear to auscultation. Breath sounds equal bilaterally. No wheezes , rales, or rhonchi. GASTROINTESTINAL: Abdomen soft, non-tender, nondistended. No hepato-splenomegaly , or palpable masses. No guarding. EXTREMITIES: No clubbing, cyanosis, or edema. No joint tenderness, effusion, or edema noted. BACK: Nontender without deformity or crepitance. No flank tenderness. NEURO: AOx3. SKIN: No rash or erythema. NIH Stroke Scale 1a. LOC: Patient is alert and keenly responsive (0) 1b. LOC Questions: Patient answers both LOC questions accurately (0) 1c. LOC Commands: Patient performs both tasks correctly (0) 2. Best Gaze: Normal (0) 3. Visual: No visual loss (0) 4. Facial palsy: Normal symmetrical movements (0) 5. Motor arm: No drift (0) 6. Motor leg: No drift (0) 7. Limb ataxia: Absent (0) 8. Sensory: Normal (0) 9. Best language: No aphasia; normal (0) 10. Dysarthria: Normal (0) 11. Extinction and inattention: No abnormality (0) NIHSS: 0 Initial Vital Signs Initial Vital Signs: Vital Signs Temperature 98.0 F 01/02/18 09:15 Pulse Rate 87 01/02/18 09:15 Respiratory Rate 12 01/02/18 09:15 Blood Pressure 149/99 H 01/02/18 09:15 Pulse Oximetry 96 01/02/18 09:15 Course Orders Ordered: ED Orders 01/02/18 09:07 CT head/brain wo con Stat Discontinued Medications Dexamethasone (Decadron) 10 mg IV NOW ONE Stop: 01/02/18 09:07 Last Admin: 01/02/18 09:40 Dose: 10 mg Diphenhydramine HCl (Benadryl) 25 mg IV NOW ONE Stop: 01/02/18 09:07 Last Admin: 01/02/18 09:40 Dose: 25 mg Sodium Chloride (Normal Saline 0.9%) 1,000 mls @ 1,000 mls/hr IV BOLUS ONE Stop: 01/02/18 10:05 Last Admin: 01/02/18 09:39 Dose: 1,000 mls/hr Ketorolac Tromethamine (Toradol) 15 mg IV NOW ONE Stop: 01/02/18 10:18 Last Admin: 01/02/18 10:32 Dose: 15 mg Metoclopramide HCl (Reglan) 10 mg IV NOW ONE Stop: 01/02/18 09:07 Last Admin: 01/02/18 09:41 Dose: 10 mg Reevaluation(s) Reevaluation #1: Head CT ordered given description of headache as most severe of her life and different than typical headache Reevaluation #2: Patient starting to feel some relief after the 1st round of medications. Now that head CT is back and normal Toradol will be added Vital Signs - 8 hr 01/02/18 09:15 01/02/18 10:04 Temperature 98.0 F 98.0 F Pulse Rate 87 87 Respiratory Rate 12 12 Blood Pressure 149/99 H 149/99 H Pulse Oximetry 96 96 MDM - Headache Differential Diagnosis Differential diagnosis: Likely migraine, tension headache, subarachnoid hemorrhage, headache, meningitis and sinusitis Lab Data Point of Care Testing Glucose POC [address] scan - head: Radiologist's impression: [address] [address] [address] Scan Report Signed Patient: Bisi López LMR#: [id number] : 1970Acct:[id number] Age/Sex: 47 / FDate of Service: 01/02/18 Loc: ED Accession Number: [id number] Procedure: CT head/brain wo con Ordering Provider: Earle Real D.O. PROCEDURE: CT HEAD/BRAIN WO CON INDICATIONS: headache TECHNIQUE: Noncontrast 4.5 mm thick angled axial sections acquired from the foramen magnum to the vertex, with coronal and sagittal reformats. For radiation dose reduction, the following was used: automated exposure control, adjustment of mA and/or kV according to patient size. COMPARISON: [facility], MR, STROKE PROTOCOL, 10/16/2011, 11:59. [facility], CT, HEAD WITHOUT CONTRAST, 02/06/2009, 11:59. [facility], CT, HEAD WITHOUT CONTRAST, 04/23/2017, 16:23. FINDINGS: Image quality: Excellent. CSF spaces: Basal cisterns are patent. No extra-axial fluid collections. Ventricles are normal in size and shape. Brain: No midline shift. No intracranial masses or hemorrhage. Fitch-white matter interface is normal. Skull and face: Calvarium and visualized facial bones are intact, without suspicious lesions. Sinuses: Visualized sinuses and mastoids are clear. IMPRESSION: Normal intracranial study. Stable from prior. Dictated by: Federico Garcia M.D. on 01/02/2018 at 9:59 Approved by: Federico Garcia M.D. on 01/02/2018 at 10:00 [facility] Narrative Medical decision making narrative: Has tremendous improvement symptoms after above-stated therapies. CT shows no change, patient's neurologic exam is completely at baseline. She is tender to palpation on her occiput and states she has had some stressful scenarios at home and she often becomes tense in her shoulders. Additionally she had a different type of chiropractic manipulation of shingles ago. Was seen these 2 scenarios likely contributed to the patient' s tension-type headache Discharge Plan Departure Patient Disposition: Home Clinical Impression: Headache Instructions: DI for Headache Activity Restrictions/Additional Instructions: *You have been diagnosed with [ acute tension type headache ] *What to do: *Take medications as directed *Follow up with your primary care provider in 2-3 days, call for an appointment. Let them know you were seen in the Emergency Department and that we ask that you be seen in follow up *Return to ER if you should have any new, worsening or concerning symptoms Prescriptions: No Action escitalopram oxalate [Lexapro] 20 MG tablet 20 mg PO QDAY Qty: 90 RF: 3 trazodone 50 MG tablet 50 mg PO HS Qty: 90 RF: 3 albuterol sulfate [Ventolin HFA] 90 MCG/PUFF HFA aerosol inhaler 2 puff INH Q4H Qty: 1 RF: 12 acyclovir 400 MG tablet 400 mg PO SEE INSTRUCTIONS Qty: 90 RF: 3 levothyroxine [Synthroid] 75 MCG tablet 0.075 mg PO QAM Qty: 90 RF: 3 ondansetron 4 mg tablet,disintegrating 4 mg PO Q6-8H PRN (Reason: nausea and vomiting) Qty: 30 RF: 0 enoxaparin [Lovenox] 40 mg/0.4 mL syringe 40 mg SUBCUT DAILY Qty: 5.6 RF: 0 trazodone 100 mg tablet 100 mg PO BEDTIME Qty: 30 RF: 3 oxycodone-acetaminophen [Percocet] 5-325 mg tablet 2 tab PO Q4-6H PRN (Reason: pain) Qty: 30 RF: 0 Referrals: Shannan Hidalgo MD [Primary Care Provider] -
[2018-01-02] MEDS: SODIUM CHLORIDE 0.9% 1,000 ML 1000 ML IV (09:39)
[2018-01-02] MEDS: diphenhydrAMINE 50 MG/ML VIAL 25 MG IV (09:40)
[2018-01-02] MEDS: DEXAMETHASONE 10 MG/ML VIAL IV (09:40)
[2018-01-02] MEDS: METOCLOPRAMIDE 10 MG/2 ML INJ IV (09:41)
[2018-01-02 10:04] VITALS: BP 149/99; PULSE 87; RESP 12; TEMP 36.7; O2SAT 96; BMI 37.4
[2018-01-02] MEDS: KETOROLAC 60 MG/2 ML VIAL 15 MG IV (10:32)
[2018-01-02 11:07] VITALS: BP 123/57; PULSE 80; O2SAT 97
[2018-01-02 11:35] VITALS: BP 123/57; PULSE 80; RESP 12; O2SAT 97
== END 2018-01-02 11:25 | disposition home or self-care (01) ==
PROVIDERS: Emergency Provider Emergency Medicine; PCP Family Medicine
DX: R51 Headache (principal)
CPT/HCPCS: 70450; 82962; 96361; 96374; 96375; 99283; 99284; J1100; J1200; J1885; J2765

== ENCOUNTER → 2018-01-12 10:46 | Outpatient (CLI) | payer MEDICARE, SELFPAY ==
[2017-10-05 13:09] VITALS: BMI 37.1
[2018-01-12 12:23] LABS: Cholesterol 191 mg/dL (140-199); Glucose 88 mg/dL (70-100); HDL Cholesterol 43 mg/dL (40-60); LDL Cholesterol Calculated 104 mg/dL (<100); Triglycerides 221 mg/dL (35-150)
== END ==
PROVIDERS: PCP Family Medicine; Visit Provider Family Medicine
DX: Z13.1 Encounter for screening for diabetes mellitus (principal); Z13.220 Encounter for screening for lipoid disorders
CPT/HCPCS: 36415; 80061; 82947

== ENCOUNTER → 2018-01-25 16:38 | Outpatient (CLI) | payer MEDICARE, SELFPAY ==
[2017-10-05 13:09] VITALS: BMI 37.1
--- NOTE | 2018-01-25 16:43 | DI.MRI.S_ITS ---
PROCEDURE: MR THORACIC SPINE WO CON INDICATIONS: chronic back pain with radiculopathy and paresthesia TECHNIQUE: Noncontrast sagittal T1 spine echo and T2 fast spin echo, sagittal STIR, axial T1 and T2 fast spin echo through the thoracic spine. COMPARISON: [facility], CR, WRIST MINIMUM 3 VIEWS LEFT, 07/17/2016, 19:06. [facility], , SHOULDER MINIMUM 2 VIEW LEFT, 07/08/2016, 10:55. [facility], , T-SPINE WITHOUT CONTRAST, 10/26/2012, 17:16. FINDINGS: Image quality: Excellent. Alignment and Curvature: There is normal bony alignment. Bone Marrow: Marrow is of normal overall signal. No acute vertebral body compression fractures. Spinal Cord: Visualized spinal cord is normal in size and signal. Paraspinous Soft Tissues: No paravertebral masses. Miscellaneous: At the T6-T7 level, endplate irregularity is seen. Reactive marrow endplate changes are seen, which demonstrate mixed T1 weighted and T2-weighted signal, and are attributed to a combination of edema and fatty metaplasia (Modic type I and Modic type II changes). Mild disc bulge is seen at this level. Mild central canal narrowing is seen, with minimal mass effect upon the ventral spinal cord. No significant neural foraminal narrowing is seen. At the T7-T8 level, there is mild disc bulge seen, with minimal central canal narrowing, with minimal mass effect upon the ventral spinal cord. No neural foraminal narrowing seen. IMPRESSION: Mid thoracic degenerative change is seen, which is similar to 2013. Dictated by: Federico Garcia M.D. on 01/25/2018 at 17:24 Approved by: Federico Garcia M.D. on 01/25/2018 at 17:28
--- NOTE | 2018-01-25 16:43 | DI.MRI.S_ITS ---
PROCEDURE: MR CERVICAL SPINE WO CON INDICATIONS: chronic back pain with radiculopathy and paresthesia TECHNIQUE: Noncontrast sagittal T1 spin echo and T2 fast spin echo, sagittal STIR, foraminal oblique sagittal T2 fast spin echo, and axial gradient echo or T2 fast spin echo through the cervical spine. COMPARISON: , MR, C-SPINE WITHOUT CONTRAST, 10/26/2012, 16:55. , MR, MR LUMBAR SPINE WO CON, 01/25/2018, 17:35. , MR, MR THORACIC SPINE WO CON, 01/25/2018, 17:11. , MR, C-SPINE WITHOUT CONTRAST, 08/14/2015, 17:29. FINDINGS: Image quality: Excellent. Alignment and Curvature: There is normal bony alignment. Bone Marrow: Marrow demonstrates normal overall signal. Spinal Cord: Visualized spinal cord has normal size and signal. No cerebellar tonsillar herniation. Paraspinous Soft Tissues: No paravertebral masses. Prevertebral soft tissues are normal in thickness. C2-C3: No significant abnormality is seen. C3-C4: The disc height is well-preserved. Loss of disc signal is seen at this level. Mild to moderate disc osteophyte complex is seen. Mild to moderate facet hypertrophy is seen. Mild bilateral neural foraminal narrowing is seen. Mild central canal narrowing is seen. C4-C5: The disc height is relatively well-preserved. Mild to moderate disc osteophyte complex is seen. Mild to moderate facet hypertrophy is seen. There is minimal right-sided and no left-sided neural foraminal narrowing seen. Minimal to mild central canal narrowing is seen. When comparison is made with the prior examination, these findings are similar. C5-C6: Moderate loss of disc height is seen. Loss of disc signal is seen. Moderate disc osteophyte complex is seen, which is eccentric to the left. Uncovertebral joint hypertrophy is seen at this level. Mild to moderate facet hypertrophy is seen. Moderate bilateral neural foraminal narrowing is seen, left worse than right. At least moderate central canal narrowing is seen, with associated mass effect upon the ventral spinal cord. These degenerative changes have progressed compared to 2016. C6-C7: The disc height is well-preserved. Loss of disc signal is seen at this level. Mild to moderate disc osteophyte complex is seen. Mild to moderate facet hypertrophy is seen. Moderate bilateral neural foraminal narrowing is seen. Mild central canal narrowing is seen. There has been progression compared to 2016. C7-T1: No significant abnormality is seen. Similar to prior. IMPRESSION: Multiple levels of cervical spine degenerative change are seen, which have progressed at the C5-C6 and C6-C7 levels compared to 2016. Dictated by: Federico Garcia M.D. on 01/25/2018 at 17:20 Approved by: Federico Garcia M.D. on 01/25/2018 at 17:24
--- NOTE | 2018-01-25 16:43 | DI.MRI.S_ITS ---
PROCEDURE: MR LUMBAR SPINE WO CON INDICATIONS: chronic back pain with radiculopathy and paresthesia TECHNIQUE: Noncontrast sagittal T1 spin echo and T2 fast echo, sagittal STIR, axial T1 and T2 fast spin echo through the lumbar spine. In cases with scoliosis, additional coronal T2 fast spin echo may be performed. COMPARISON: [facility], MR, L-SPINE WITHOUT CONTRAST, 10/26/2012, 17:31. [facility], MR, L-SPINE WITHOUT CONTRAST, 03/14/2015, 10:37. [facility], MR, MR THORACIC SPINE WO CON, 01/25/2018, 17:11. [facility], MR, MR CERVICAL SPINE WO CON, 01/25/2018, 16:56. [facility], MR, L-SPINE WITHOUT CONTRAST, 08/14/2015, 17:50. FINDINGS: Image quality: Excellent. Alignment and Curvature: There is normal bony alignment. Bone Marrow: Marrow is of normal overall signal. No acute vertebral body compression fractures. Spinal Cord: Conus medullaris terminates at the L1 level. Visualized cord demonstrates normal signal and size. Paraspinous Soft Tissues: No paravertebral masses. T12-L1: Normal appearance. L1-L2: Normal appearance. L2-L3: Mild loss of disc height is seen. Loss of disc signal is seen. Ipib-kz-zpefiagt disc bulge is seen. Mild facet joint hypertrophy is seen. Mild bilateral neural foraminal narrowing is seen. Minimal central canal narrowing is seen. Stable from the prior study. L3-L4: Mild loss of disc height is seen. Loss of disc signal is seen. Mild to moderate disc bulge is seen, which is eccentric to the left. There is mild left-sided and no significant right-sided neural foraminal narrowing seen. No significant canal narrowing is seen. Stable from the prior study. L4-L5: The disc height is well-preserved. Loss of disc signal is seen at this level. Mild to moderate disc bulge is seen. Moderate facet joint hypertrophy is seen. No significant neural foraminal or central canal narrowing are seen. The previously seen neural foraminal narrowing has improved. L5-S1: Mild loss of disc height is seen. Loss of disc signal is seen. Mild generalized disc bulge is seen. Mild facet joint hypertrophy is seen. No significant neural foraminal or central canal narrowing are seen. The previously seen neural foraminal narrowing has improved. IMPRESSION: Interval improvement in neural foraminal narrowing at L4-L5 and L5-S1, compared to 2016. Dictated by: Federico Garcia M.D. on 01/25/2018 at 17:28 Approved by: Federico Garcia M.D. on 01/25/2018 at 17:33
== END ==
PROVIDERS: PCP Family Medicine; Visit Provider Family Medicine
DX: M50.11 Cervical disc disorder with radiculopathy, high cervical region (principal); M51.14 Intervertebral disc disorders with radiculopathy, thoracic region; M51.16 Intervertebral disc disorders with radiculopathy, lumbar region; M51.17 Intervertebral disc disorders with radiculopathy, lumbosacral region; M48.02 Spinal stenosis, cervical region; M48.061 Spinal stenosis, lumbar region without neurogenic claudication; M48.07 Spinal stenosis, lumbosacral region; M54.9 Dorsalgia, unspecified; R20.0 Anesthesia of skin; G89.29 Other chronic pain
CPT/HCPCS: 72141; 72146; 72148

== ENCOUNTER 2018-03-19 07:40 | Day surgery (SDC) | payer MEDICARE, SELFPAY ==
[2017-10-05 13:09] VITALS: BMI 37.1
[2018-03-17 10:09] VITALS: BMI 40.2
[2018-03-19] VITALS (8 sets, daily range): BP systolic 121–152; BP diastolic 73–108; PULSE 72–91; RESP 12–16; TEMP 36.2–36.6; O2SAT 94–96; BMI 40.2
--- NOTE | 2018-03-19 | PATH_ITS ---
[facility] Accession Number: [id number] . 01 Material submitted: . RIGHT VULVAR CYST . 02 Diagnosis: Mass From Right Vulvar Area: Mature adipose tissue consistent with lipoma, negative for atypia. No cyst identified. MRV/03/22/2018 . 02 Electronically signed: . Enzo Zaman MD, Pathologist NPI- [id number] . 01 Gross description: . Received one formalin-filled container labeled with the patient's name and labeled R vulvar cyst. The specimen consists of a 1.3 x 1.0 x 0.7 cm, light yellow-valentine portion of soft tissue which is inked, sectioned into four pieces, and entirely submitted in cassettes A1 and A2. ([id number]) /FRR . 02 Pathologist provided ICD-10: D17.39 . 02 CPT . 554092 Performed at: 01 [facility] [address] [id number] MD Kel Hill MD Phone: [phone] Performed at: [facility] [address] [place], [place] [id number] MD Abbey Dixon MD Phone: [phone]
[2018-03-19] MEDS: LACTATED RINGERS 1,000 ML 42 ML IV (07:58)
--- NOTE | 2018-03-19 08:18 | SUR.OPER ---
Lithotomy on padded OR bed, head on pillow, arms secured on padded arm boards at <90 degrees abduction. Legs secured in padded yellow fins stirrups.
[2018-03-19] MEDS: FAMOTIDINE 20 MG/50 ML PIGGYBACK 200 MG IV (08:24)
--- NOTE | 2018-03-19 08:27 | PM.PREOP ---
Pre-operative Note Interval Note Pre-op Check: Yes History & Physical exam performed today by Physician Changes: No
[2018-03-19] MEDS: BUPIVACAINE 0.5% W/ EPI (PF) VIAL 30 ML INJ (08:28)
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
[2018-03-19] MEDS: ONDANSETRON 4 MG/2 ML INJ IV (09:24)
[2018-03-19] MEDS: HYDROMORPHONE 2 MG INJ 0.5 MG IV ×4 (09:29→09:58)
[2018-03-19] MEDS: METOCLOPRAMIDE 10 MG/2 ML INJ IV (09:51)
[2018-03-19] MEDS: LACTATED RINGERS 1,000 ML 100 ML IV (09:54)
--- NOTE | 2018-03-20 10:09 | PM.GYNOP.1 ---
Operative Date/Time/Diagnoses Date of procedure: 03/19/18 Time of procedure: 09:30 Pre-op diagnosis: Right vulvar mass Post-op diagnosis: same Procedure: Procedures Operation Date: 03/19/18 08:45 Actual Procedures Side Surgeon p Excision Right vulvar cyst Hoa Galdamez MD Indications: Painful right vulvar mass Surgeon: Hoa Galdamez Anesthesia Type: General (LMA) Operative Notes Findings: 2 cm right vulvar mass Closure Type: primary Specimen(s): other (Right vulvar mass) Estimated blood loss (mL): 2 Blood products transfused: none Procedure in detail: After informed consent was obtained, the patient was taken to the operating room where she was placed in the dorsal supine position. After adequate LMA general anesthesia was achieved, she was placed in the dorsal lithotomy position, and prepped and draped in the usual sterile fashion. 6 cc of 0.25% Marcaine with epinephrine were injected under the skin over the mass. A 1 cm incision was made. The mass was grasped with an Allis clamp. The mass was dissected out with Metzenbaum scissors. The Bovie was used for hemostasis. The deep tissue was closed with 2 0 Vicryl with 2 simple interrupted sutures. The skin was closed with 4 0 chromic in a subcuticular fashion. Hemostasis was achieved. Sponge, lap, and instrument counts were correct x2. The patient tolerated the procedure well, and was taken to PACU in stable condition. Complications: none Post-operative Condition: stable Disposition: PACU Plan for aftercare: Home after recovery
== END 2018-03-19 10:28 | disposition home or self-care (01) ==
PROVIDERS: PCP Family Medicine; Visit Provider Obstetrics & Gynecology
PROC: (CPT 56620; principal; 2018-03-19 08:45)
DX: D17.39 Benign lipomatous neoplasm of skin and subcutaneous tissue of other sites (principal); E66.9 Obesity, unspecified; F17.210 Nicotine dependence, cigarettes, uncomplicated; R10.2 Pelvic and perineal pain
CPT/HCPCS: 56620; 11422; 88304; J1100; J1170; J2250; J2405; J2704; J2765; J3010

== ENCOUNTER → 2018-04-20 10:22 | Outpatient (CLI) | payer MEDICARE, MEDICAID, SELFPAY ==
[2017-10-05 13:09] VITALS: BMI 37.1
[2018-04-20 12:02] LABS: Free T4, Direct Thyroxine 0.89 ng/dL (0.78-2.19)
[2018-04-20 12:16] LABS: Thyroid Stimulating Hormone 4.18 uIU/mL (0.47-4.68)
== END ==
PROVIDERS: PCP Family Medicine; Visit Provider Family Medicine
DX: E03.9 Hypothyroidism, unspecified (principal); E04.1 Nontoxic single thyroid nodule
CPT/HCPCS: 36415; 84439; 84443; 84481

== ENCOUNTER 2018-05-26 16:58 | Emergency (ER) | payer MEDICARE, SELFPAY ==
[2017-10-05 13:09] VITALS: BMI 37.1
[2018-05-26 17:02] VITALS: BP 167/100; PULSE 88; RESP 15; TEMP 36.3; O2SAT 100; BMI 39.0
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
--- NOTE | 2018-05-26 17:40 | DI.MRI.S_ITS ---
PROCEDURE: MR LUMBAR SPINE WO CON INDICATIONS: Pain into sacral/lumbar area after ground level fall. Bilateral lateral thigh numbness TECHNIQUE: Noncontrast sagittal T1 spin echo and T2 fast echo, sagittal STIR, axial T1 and T2 fast spin echo through the lumbar spine. Axial and oblique coronal T1 spin echo and STIR through the sacrum. In cases with scoliosis, additional coronal T2 fast spin echo may be performed. COMPARISON: [facility], , MR LUMBAR SPINE WO CON, 01/25/2018, 17:35. FINDINGS: Image quality: Excellent. Alignment and Curvature: There is normal bony alignment. Bone Marrow: Marrow is of normal overall signal. No acute vertebral body compression fractures. No sacral fractures. Spinal Cord: Conus medullaris terminates at the L1 level. Visualized cord demonstrates normal signal and size. Paraspinous Soft Tissues: No paravertebral masses. L1-L2: Normal appearance. L2-L3: Slight decreased intervertebral disc space and mild diffuse disc bulge is seen with bilateral facet arthrosis. Mild central canal stenosis and bilateral neuroforaminal narrowing is again noted, unchanged or minimally progressed since previous study. L3-L4: Diffuse disc bulge and bilateral facet arthrosis is seen with no significant central canal stenosis. Mild left-sided neuroforaminal narrowing is again seen and unchanged from previous study. L4-L5: Broad-based disc bulge and bilateral facet arthrosis is seen. No significant central canal stenosis or neuroforaminal narrowing is seen. L5-S1: There is mild diffuse disc bulge and bilateral facet arthrosis with no significant central canal stenosis or neuroforaminal narrowing. Sacrum: Sacral neural foramina appear normal throughout. Superior to the piriformis muscles, the pre-plexal structures appear normal, including the lumbosacral trunk and S1 root. Just anterior to the piriformis muscles, the sacral plexus proper demonstrates normal morphology (lumbosacral trunk, S1 to S3 nerve roots). Inferior to the piriformis muscles, the sciatic nerves appear normal. IMPRESSION: 1. No acute compression fracture or spondylolisthesis of lumbar spine. No acute sacral fracture. 2. Mild degenerative disc bulge at L2-3 through L5-S1 levels with bilateral facet arthrosis. Mild central canal stenosis and bilateral neural foraminal narrowing is noted at L2-3 level. Mild left-sided neural foraminal narrowing is seen at L3-4 level. Findings are not significantly changed from 01/25/18 study. Dictated by: Tanner Rodriguez M.D. on 05/26/2018 at 18:53 Approved by: Tanner Rodriguez M.D. on 05/26/2018 at 18:57
[2018-05-26 17:45] VITALS: BP 137/90; PULSE 82; RESP 17; O2SAT 96
[2018-05-26 18:30] VITALS: BP 143/75; PULSE 84; O2SAT 96
[2018-05-26] MEDS: HYDROCODONE/ACET 5/325 TABLET 1 TAB PO (18:34)
[2018-05-26] MEDS: ONDANSETRON 4 MG ODT SL (18:41)
--- NOTE | 2018-05-26 19:17 | PC.NURSE ---
Pt slipped outside on 05/23/18, numbness and tingling in both of her legs have gotten progressively worse since the initial fall.
[2018-05-26 19:20] VITALS: BP 140/101; PULSE 80; RESP 16; O2SAT 97
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
[2018-05-26 19:43] VITALS: BP 140/101; PULSE 82; RESP 16; O2SAT 94
== END 2018-05-26 19:44 | disposition home or self-care (01) ==
PROVIDERS: Emergency Provider Nurse Practitioner Family; PCP Family Medicine
DX: M54.42 Lumbago with sciatica, left side (principal); W01.0XXA Fall on same level from slipping, tripping and stumbling without subsequent striking against object, initial encounter
CPT/HCPCS: 72148; 99283

== ENCOUNTER → 2018-05-31 11:07 | Outpatient (CLI) | payer MEDICARE, SELFPAY ==
[2017-10-05 13:09] VITALS: BMI 37.1
--- NOTE | 2018-05-31 | DI.MG.S_ITS ---
BILATERAL DIGITAL SCREENING MAMMOGRAM 3D/2D WITH CAD: 05/31/2018 CLINICAL: Routine screening. Family history of breast cancer. Comparison is made to exams dated: 12/07/2017 mammogram, 05/05/2017 mammogram, 04/27/2014 mammogram, and 04/22/2013 mammogram - [facility]. The tissue of both breasts is predominantly fatty. Current study was also evaluated with a Computer Aided Detection (CAD) system. No significant masses, calcifications, or other findings are seen in either breast. There has been no significant interval change. IMPRESSION: NEGATIVE There is no mammographic evidence of malignancy. A 1 year screening mammogram is recommended. This exam was interpreted at Station ID: [id number]. NOTE: For mammograms, a report in lay terms will be sent to the patient. Approximately 15% of breast malignancies will not be visualized mammographically. In the management of a palpable breast mass, a negative mammogram must not discourage biopsy of a clinically suspicious lesion. Electronically Signed By: Rosette kim/lb:05/31/2018 18:13:26 letter sent: Normal Exam ACR BI-RADS Category 1: Negative [id number]
--- NOTE | 2018-05-31 11:09 | DI.US.S_ITS ---
PROCEDURE: US THYROID INDICATIONS: THYROID NODULES WITH NOW TENDER THYROID TECHNIQUE: Real-time scanning was performed of the thyroid gland, with image documentation. COMPARISON: [facility], [place], THYROID, 01/25/2009, 9:07. [facility]ROID, 09/06/2009, 12:20. [facility], [place], THYROID, 04/16/2017, 10:53. FINDINGS: Right: Thyroid lobe measures 6.2 x 2.2 x 2.7 cm. Left: Thyroid lobe measures 5.9 x 2.5 x 2.1 cm. Isthmus: 10 mm thick. The thyroid demonstrates a diffusely heterogeneous appearance. The most clearly defined thyroid nodules are described below. Nodule number: 1 Location: Right superior Size: 0.7 x 0.5 x 0.9 cm, previously measuring 1.3 x 0.6 x 1 cm. Composition: Predominantly solid Echogenicity: Hypoechoic Shape: wider than tall. Margins: Smooth Echogenic foci: None Total points: 4 ACR TI-RADS category: 4, moderately suspicious. By published criteria, no followup is recommended for a nodule of this size. Nodule number: 2 Location: Right inferior thyroid Size: 1.1 x 0.9 x 1.3 cm, previously measuring 0.9 x 0.7 x 1.1 cm. Composition: Solid Echogenicity: Hypoechoic Shape: wider than tall. Margins: Smooth Echogenic foci: None Total points: 4 ACR TI-RADS category: 4, moderately suspicious. An ultrasound followup is recommended in 1, 2, 3, and 5 years for a nodule of this size. Nodule number: 3 Location: Right superior thyroid Size: 0.6 x 0.4 x 0.5 cm, previously measuring 0.6 x 0.5 x 0.5 cm. Composition: Solid Echogenicity: Hypoechoic Shape: wider than tall. Margins: Hypoechoic halo Echogenic foci: None Total points: 4 ACR TI-RADS category: 4, moderately suspicious. An ultrasound followup is recommended in 1, 3, and 5 years for a nodule of this size. Nodule number: 4 Location: Left superior thyroid Size: 0.9 x 0.7 x 0.8 cm. Composition: Solid Echogenicity: Isoechoic Shape: wider than tall. Margins: Smooth Echogenic foci: None Total points: 3 ACR TI-RADS category: 3, mildly suspicious. An ultrasound followup is recommended in 1, 3, and 5 years for a nodule of this size. IMPRESSION: Diffusely heterogeneous thyroid. For the nodules described above, ultrasound followup is recommended, with the next ultrasound followup in 1 year. ACR TI-RADS definitions and recommendations: TI-RADS 1 (benign): 0 points. FNA not needed. TI-RADS 2 (not suspicious): 2 points. FNA not needed. TI-RADS 3 (mildly suspicious): 3 points. * FNA if 2.5 cm or larger, follow up if 1.5 cm or larger (at 1, 3, and 5 years). TI-RADS 4 (moderately suspicious): 4-6 points. * FNA if 1.5 cm or larger, follow up if 1 cm or larger (at 1, 2, 3, and 5 years). TI-RADS 5 (highly suspicious): 7 points or more. * FNA if 1 cm or larger, follow up if 0.5 cm or larger (every year for 5 years). Dictated by: Federico Garcia M.D. on 06/01/2018 at 10:03 Approved by: Federico Garcia M.D. on 06/01/2018 at 10:08
== END ==
PROVIDERS: PCP Family Medicine; Visit Provider Family Medicine
DX: Z12.31 Encounter for screening mammogram for malignant neoplasm of breast (principal); Z80.3 Family history of malignant neoplasm of breast; E04.2 Nontoxic multinodular goiter; E03.9 Hypothyroidism, unspecified
CPT/HCPCS: 76536; 77063; 77067

== ENCOUNTER 2018-06-10 12:58 | Emergency (ER) | payer MEDICARE, SELFPAY ==
[2017-10-05 13:09] VITALS: BMI 37.1
[2018-06-10 13:03] VITALS: BP 146/89; PULSE 87; RESP 20; TEMP 36.3; O2SAT 99
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
[2018-06-10] MEDS: PROPARACAINE 0.5% OPHTH SOL 2 DROPS EYE-OP (13:20)
--- NOTE | 2018-06-10 14:08 | PC.NURSE ---
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
== END 2018-06-10 14:10 | disposition home or self-care (01) ==
PROVIDERS: Emergency Provider Internal Medicine; PCP Family Medicine
DX: S05.01XA Injury of conjunctiva and corneal abrasion without foreign body, right eye, initial encounter (principal)
CPT/HCPCS: 99283

== ENCOUNTER → 2018-06-19 12:51 | Outpatient (CLI) | payer MEDICARE, SELFPAY ==
[2017-10-05 13:09] VITALS: BMI 37.1
== END ==
PROVIDERS: PCP Family Medicine; Visit Provider Ophthalmology
DX: H16.012 Central corneal ulcer, left eye (principal)
CPT/HCPCS: 87070; 87205

== ENCOUNTER → 2018-10-22 10:47 | Outpatient (CLI) | payer MEDICARE, MEDICAID, SELFPAY ==
[2017-10-05 13:09] VITALS: BMI 37.1
[2018-10-22 12:54] LABS: Free T4, Direct Thyroxine 0.92 ng/dL (0.78-2.19)
[2018-10-22 13:08] LABS: Thyroid Stimulating Hormone 3.14 uIU/mL (0.47-4.68)
== END ==
PROVIDERS: Family Medicine; PCP Family Medicine; Visit Provider Family Medicine
DX: E03.9 Hypothyroidism, unspecified (principal)
CPT/HCPCS: 36415; 84439; 84443

== ENCOUNTER → 2018-11-04 07:22 | Outpatient (CLI) | payer MEDICARE, SELFPAY ==
[2017-10-05 13:09] VITALS: BMI 37.1
--- NOTE | 2018-11-04 07:24 | DI.US.S_ITS ---
PROCEDURE: US PELVIC COMPLETE INDICATIONS: L ovarian pain TECHNIQUE: Real-time scanning was performed of the pelvic organs, with image documentation. Additional endovaginal scanning was necessary due to incomplete visualization of the adnexal and endometrial structures by transabdominal scanning. COMPARISON: [facility], US, PELVIC COMPLETE, 07/10/2017, 12:37. FINDINGS: Transabdominal scanning: Limited scanning through the kidneys shows no hydronephrosis. No pathologic free abdominal or pelvic fluid. Endovaginal scanning: Uterus: Patient is status post partial hysterectomy. A 0.7 x 1.8 x 0.7 cm region of hypoechoic soft tissue is present at the cervical os. Ovaries: The right ovary measures 2.5 x 2.4 x 1.6 cm. There is a 1.3 x 1.2 x 0.7 cm involuting cyst. The left ovary measures 2.1 x 1.8 x 1.6 cm and has a normal echotexture. IMPRESSION: 1. Partial hysterectomy. Focal hypoechoic soft tissue is present within the cervical os. The significance of this finding is unclear. Direct visualization is recommended to further characterize this finding. Differential considerations include endometrial polyp or uterine remnant. 2. Involuting right ovarian follicular cyst. Dictated by: Anna Jimenez M.D. on 11/04/2018 at 10:03 Approved by: Anna Jimenez M.D. on 11/04/2018 at 10:23
== END ==
PROVIDERS: PCP Family Medicine; Visit Provider Obstetrics & Gynecology
DX: N83.01 Follicular cyst of right ovary (principal); N94.89 Other specified conditions associated with female genital organs and menstrual cycle; R10.9 Unspecified abdominal pain
CPT/HCPCS: 76830; 76856

== ENCOUNTER 2019-01-08 15:31 | Emergency (ER) | payer OTHER, MEDICARE, MEDICAID, SELFPAY ==
[2017-10-05 13:09] VITALS: BMI 37.1
[2019-01-08 15:33] VITALS: BP 160/110; PULSE 109; RESP 18; TEMP 36.7; O2SAT 97; BMI 33.5
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
[2019-01-08] MEDS: KETOROLAC 60 MG/2 ML VIAL 30 MG IM (15:49)
== END 2019-01-08 17:25 | disposition home or self-care (01) ==
PROVIDERS: Emergency Provider Emergency Medicine; PCP Family Medicine
DX: S16.1XXA Strain of muscle, fascia and tendon at neck level, initial encounter (principal); V49.40XA Driver injured in collision with unspecified motor vehicles in traffic accident, initial encounter
CPT/HCPCS: 72125; 96372; 99282; 99284; J1885

== ENCOUNTER → 2019-01-11 10:18 | Outpatient (CLI) | payer OTHER, SELFPAY ==
[2017-10-05 13:09] VITALS: BMI 37.1
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
== END ==
PROVIDERS: PCP Family Medicine; Visit Provider Family Medicine
DX: M25.551 Pain in right hip (principal); M16.0 Bilateral primary osteoarthritis of hip; M47.816 Spondylosis without myelopathy or radiculopathy, lumbar region
CPT/HCPCS: 73502

== ENCOUNTER → 2019-01-13 09:35 | Outpatient (CLI) | payer OTHER, SELFPAY ==
[2017-10-05 13:09] VITALS: BMI 37.1
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
[2019-01-13 11:04] LABS: Hematocrit 43.3 % (36-46); Hemoglobin 15.4 g/dL (12.0-16.0); Mean Corpuscular HGB Conc 35.6 % (30-36); Mean Corpuscular Hemoglobin 30.8 PG (26-34); Mean Corpuscular Volume 86.6 fL (80-100); Platelet Count 244 X10^3/uL (150-400); Red Blood Cell Count 5.01 X10^6/uL (4.0-5.2); Red Cell Distribution Width 12.5 % (11.6-14.8); White Blood Cell Count 6.1 X10^3/uL (4.5-11.0)
== END ==
PROVIDERS: PCP Family Medicine; Visit Provider Nurse Practitioner Family
DX: R10.30 Lower abdominal pain, unspecified (principal)
CPT/HCPCS: 36415; 76700; 85027

== ENCOUNTER → 2019-01-28 06:01 | Outpatient (CLI) | payer OTHER, SELFPAY ==
[2017-10-05 13:09] VITALS: BMI 37.1
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
== END ==
PROVIDERS: PCP Family Medicine; Visit Provider Family Medicine
DX: S06.0X9A Concussion with loss of consciousness of unspecified duration, initial encounter (principal)
CPT/HCPCS: 70551

== ENCOUNTER → 2019-03-26 08:15 | Outpatient (CLI) | payer MEDICARE, MEDICAID, SELFPAY ==
[2019-02-09 10:38] VITALS: BMI 37.1
--- NOTE | 2019-03-26 08:17 | DI.MRI.S_ITS ---
PROCEDURE: MR KNEE RT WO CON INDICATIONS: twisted knee, r/o internal derrangement TECHNIQUE: Noncontrast sagittal PD fast spin echo and T2 fast spin echo with fat saturation, sagittal 3-D FLASH with fat saturation; coronal T1 spin echo and PD fast spin echo with fat saturation, and axial PD fast spin echo with fat saturation through the knee. COMPARISON: None. FINDINGS: Image quality: Diagnostic. Bones and joint: There is no acute fracture or dislocation. No suspicious osseous lesions are evident. There is a small knee joint effusion with a trace amount of fluid extending into a small Mendoza's cyst. Slight surface irregularity of the head articular cartilage at the apex of the medial and lateral patellar facets appears to be present. No full-thickness cartilaginous defects are identified. There may be mild scarring of the hyaline articular cartilage along the lateral tibial plateau. Cruciate ligaments: The anterior and posterior cruciate ligaments are intact. Menisci: Increased signal is identified involving the medial meniscus through the body and posterior horn. Slight increased signal along the periphery could potentially represent a small peripheral tear. No articular surface tearing is identified. The lateral meniscus is intact and otherwise unremarkable. Medial structures: Moderate subcutaneous edema is identified overlying the medial patellofemoral ligament without a definite full-thickness defect appreciated. Slight thickening of the ligament is noted. The increased signal involving the medial collateral ligament is present with probable areas of low-grade partial-thickness tearing. Periligamentous edema is incidentally noted. The semimembranosus tendon insertion is intact. The imaged portions of the pes anserinus tendons are unremarkable. No significant fluid is contained within the pes anserinus bursa. Lateral structures: The popliteal tendon is thickened and edematous at its origin. The lateral collateral ligament proper (fibular collateral ligament) and the proximal tibiofibular ligaments are intact. The distal aspect of the biceps femoris tendon and the iliotibial band are intact. Anterior structures: The quadriceps and patellar tendons are intact. Minimal increased signal at the distal patellar tendon is present. There is a small amount of fluid contained within the prepatellar bursa. There is no significant edema in the infrapatellar fat pad. IMPRESSION: 1. Grade 2 signal of the medial meniscus with possible horizontal tearing along the periphery versus normal vascular structures. 2. Low-grade partial-thickness tearing of the medial collateral ligament. There is also a sprain of the medial patellofemoral ligament. 3. Mild proximal popliteal tendinopathy. 4. Small knee joint effusion. 5. Questionable mild distal patellar tendinopathy. 6. Fluid within the prepatellar bursa is likely reactive to a process involving the medial knee ligaments. This correlate clinically to exclude prepatellar bursitis. Dictated by: Gen Morales M.D. on 03/28/2019 at 10:40 Approved by: Gen Morales M.D. on 03/28/2019 at 10:48
== END ==
PROVIDERS: PCP Family Medicine; Visit Provider Physician Assistant
DX: M25.561 Pain in right knee (principal); M25.461 Effusion, right knee; S83.411A Sprain of medial collateral ligament of right knee, initial encounter
CPT/HCPCS: 73721

== ENCOUNTER → 2019-05-06 08:23 | Outpatient (CLI) | payer MEDICARE, MEDICAID, SELFPAY ==
[2019-02-09 10:38] VITALS: BMI 37.1
[2019-05-06 09:16] LABS: Creatinine Urine Random 169.6 mg/dL
[2019-05-06 09:20] LABS: Alanine Aminotransferase 23 IU/L (<35); Albumin 4.1 g/dL (3.5-5.0); Albumin Globulin Ratio 1.6 (1.0-2.8); Alkaline Phosphatase 77 U/L (38-126); Aspartate Aminotransferase 22 IU/L (14-36); BUN Creatinine Ratio 21.4 (6-22); Bilirubin Total 0.7 mg/dL (0.2-1.3); Blood Urea Nitrogen 15 mg/dL (7-17); Calcium 9.3 mg/dL (8.4-10.2); Carbon Dioxide 31 mmol/L (22-32); Chloride 102 mmol/L (98-107); Cholesterol 206 mg/dL (140-199); Estimated Glomerular Filt Rate > 60.0 mL/min (>60); Globulin 2.6 g/dL (1.7-4.1); Glucose 82 mg/dL (70-100); HDL Cholesterol 45 mg/dL (40-60); HEMOLYSIS < 15 (0-50); LDL Cholesterol Calculated 134 mg/dL (<100); Potassium 4.3 mmol/L (3.4-5.1); Sodium 139 mmol/L (137-145); Total Protein 6.7 g/dL (6.3-8.2); Triglycerides 134 mg/dL (35-150)
[2019-05-06 09:21] LABS: Microalbumi Creatinin Ratio Ur 3.5 ug/mg CR (<30); Microalbumin Urine Random 0.6 mg/dL (0-1.6)
== END ==
PROVIDERS: PCP Family Medicine; Visit Provider Family Medicine
DX: I10 Essential (primary) hypertension (principal)
CPT/HCPCS: 36415; 80053; 80061; 82043; 82570

== ENCOUNTER → 2019-06-21 11:49 | Outpatient (CLI) | payer MEDICARE, MEDICAID, SELFPAY ==
[2019-02-09 10:38] VITALS: BMI 37.1
--- NOTE | 2019-06-21 | DI.MG.S_ITS ---
BILATERAL DIGITAL SCREENING MAMMOGRAM 3D/2D WITH CAD: 06/21/2019 CLINICAL: Routine screening. Comparison is made to exams dated: 05/31/2018 mammogram, 12/07/2017 mammogram, 05/05/2017 mammogram, and 04/27/2014 mammogram - [facility]. The tissue of both breasts is predominantly fatty. Current study was also evaluated with a Computer Aided Detection (CAD) system. No significant masses, calcifications, or other findings are seen in either breast. There has been no significant interval change. IMPRESSION: NEGATIVE There is no mammographic evidence of malignancy. A 1 year screening mammogram is recommended. This exam was interpreted at Station ID: [id number]. NOTE: For mammograms, a report in lay terms will be sent to the patient. Approximately 15% of breast malignancies will not be visualized mammographically. In the management of a palpable breast mass, a negative mammogram must not discourage biopsy of a clinically suspicious lesion. Electronically Signed By: Ravinder vick/lb:06/21/2019 13:25:34 letter sent: Normal Exam ACR BI-RADS Category 1: Negative 3341F
== END ==
PROVIDERS: PCP Family Medicine; Referring Provider Family Medicine; Visit Provider Family Medicine
DX: Z12.31 Encounter for screening mammogram for malignant neoplasm of breast (principal)
CPT/HCPCS: 77063; 77067

== ENCOUNTER → 2019-09-23 10:27 | Outpatient (CLI) | payer MEDICARE, MEDICAID, SELFPAY ==
[2019-02-09 10:38] VITALS: BMI 37.1
[2019-09-23 12:17] LABS: Free T3, Triiodothyronine Free 4.36 pg/mL (2.77-5.27); Free T4, Direct Thyroxine 0.86 ng/dL (0.78-2.19)
[2019-09-23 12:31] LABS: Thyroid Stimulating Hormone 4.11 uIU/mL (0.47-4.68)
== END ==
PROVIDERS: PCP Family Medicine; Referring Provider Family Medicine; Visit Provider Family Medicine
DX: E03.9 Hypothyroidism, unspecified (principal)
CPT/HCPCS: 36415; 84439; 84443; 84481

== ENCOUNTER → 2019-12-26 15:39 | Outpatient (CLI) | payer MEDICARE, MEDICAID, SELFPAY ==
[2019-02-09 10:38] VITALS: BMI 37.1
--- NOTE | 2019-12-26 15:41 | DI.MRI.S_ITS ---
PROCEDURE: MR CERVICAL SPINE WO CON INDICATIONS: neck pain, cervical radiculopathy, bilateral arm pain TECHNIQUE: Noncontrast sagittal T1 spin echo and T2 fast spin echo, sagittal STIR, foraminal oblique sagittal T2 fast spin echo, and axial gradient echo or T2 fast spin echo through the cervical spine. COMPARISON: [facility], MR, C-SPINE WITHOUT CONTRAST, 10/26/2012, 16:55. [facility], MR, C-SPINE WITHOUT CONTRAST, 08/14/2015, 17:29. [facility], MR, MR CERVICAL SPINE WO CON, 01/25/2018, 16:56. FINDINGS: Image quality: This examination is limited by involuntary motion artifact. Alignment and Curvature: There is straightening of the normal cervical lordosis. No focal AP alignment abnormality is seen. Bone Marrow: Marrow demonstrates normal overall signal. Spinal Cord: Visualized spinal cord has normal size and signal. No cerebellar tonsillar herniation. Paraspinous Soft Tissues: No paravertebral masses. Prevertebral soft tissues are normal in thickness. C2-C3: No significant abnormality is seen. Stable. C3-C4: The disc height is well-preserved. Loss of disc signal is seen at this level. A mild degree of generalized disc osteophyte complex is seen. At least moderate facet hypertrophy is seen. There is at least moderate left-sided and moderate right-sided neural foraminal narrowing seen. Mild central canal narrowing is seen. These imaging findings have progressed compared to the prior study. C4-C5: Mild loss of disc height is seen. Loss of disc signal is seen. A mild degree of generalized disc osteophyte complex is seen. There is at least moderate right-sided and moderate left-sided facet hypertrophy seen. There is mild to moderate right-sided and no significant left-sided neural foraminal narrowing seen. Mild central canal narrowing is seen. These imaging findings have progressed compared to the prior study. C5-C6: Mild loss of disc height is seen. Loss of disc signal is seen. Moderate to prominent disc osteophyte complex is seen, which is eccentric to the left. There is [id number] bilateral facet hypertrophy is seen. There is at least moderate bilateral neural foraminal narrowing seen. Moderate central canal narrowing is seen. When comparison is made with the prior examination, these findings are similar. C6-C7: The disc height is well-preserved. Loss of disc signal is seen at this level. At least moderate disc osteophyte complex is seen, which is eccentric to the left. Moderate facet joint hypertrophy is seen. There is at least moderate bilateral neural foraminal narrowing seen. Mild to moderate central canal narrowing is seen. Mild progression compared to the prior. C7-T1: The disc height is well-preserved. Loss of disc signal is seen at this level. A mild degree of generalized disc osteophyte complex is seen. Mild bilateral neural foraminal narrowing is seen. The central canal is widely patent. These imaging findings have progressed compared to the prior study. IMPRESSION: Multiple levels of cervical spine degenerative change are seen, which have overall progressed compared to 2018. Dictated by: Federico Garcia M.D. on 12/26/2019 at 16:25 Approved by: Federico Garcia M.D. on 12/26/2019 at 16:31
== END ==
PROVIDERS: PCP Family Medicine; Referring Provider Family Medicine; Visit Provider Family Medicine
DX: M54.2 Cervicalgia (principal); M47.22 Other spondylosis with radiculopathy, cervical region; M79.601 Pain in right arm; M79.602 Pain in left arm; Z98.890 Other specified postprocedural states
CPT/HCPCS: 72141

== ENCOUNTER → 2020-01-31 12:22 | Outpatient (CLI) | payer MEDICARE, MEDICAID, SELFPAY ==
[2019-02-09 10:38] VITALS: BMI 37.1
--- NOTE | 2020-01-31 12:24 | DI.RAD.S_ITS ---
PROCEDURE: XR FACIAL BONES MIN 3V INDICATIONS: left TMJ severe pain TECHNIQUE: 3 views of the facial bones were acquired. COMPARISON: None. FINDINGS: Sinuses: Visualized sinuses demonstrate no air-fluid levels or mucosal thickening. Bones: No fractures. No suspicious bony lesions. Orbital rims and zygomatic arches appear intact. Soft tissues: No suspicious soft tissue densities. IMPRESSION: No trauma found, no sign of sinusitis. Please note that dedicated MR scanning for temporomandibular joint function and degenerative changes provides the most accurate assessment. There is a plain film TMJ series which is different than a facial bones series but that provides significantly less accurate assessment of the temporal mandibular joints than MR scanning. Dictated by: Brandyn Caceres M.D. on 01/31/2020 at 14:08 Approved by: Brandyn Caceres M.D. on 01/31/2020 at 14:10
== END ==
PROVIDERS: PCP Family Medicine; Referring Provider Family Medicine; Visit Provider Family Medicine
DX: M26.622 Arthralgia of left temporomandibular joint (principal)
CPT/HCPCS: 70150

== ENCOUNTER → 2020-04-03 13:07 | Outpatient (CLI) | payer MEDICARE, SELFPAY ==
[2019-02-09 10:38] VITALS: BMI 37.1
--- NOTE | 2020-04-03 13:11 | DI.MRI.S_ITS ---
PROCEDURE: MR LUMBAR SPINE WO CON INDICATIONS: Radiculopathy, lumbar region TECHNIQUE: Noncontrast sagittal T1 spin echo and T2 fast echo, sagittal STIR, axial T1 and T2 fast spin echo through the lumbar spine. In cases with scoliosis, additional coronal T2 fast spin echo may be performed. COMPARISON: [facility], MR, MR LUMBAR SPINE WO CON, 05/26/2018, 17:56. FINDINGS: Image quality: Excellent. Alignment and Curvature: 5 lumbar type vertebral bodies are present by plain film. There is loss of normal lumbar lordosis. There is mild grade 1 retrolisthesis of L2 on L3. Bone Marrow: Marrow is of normal overall signal. No acute vertebral body compression fractures. Mild reactive signal within the endplates adjacent to the L2-L3 and L3-L4 intervertebral discs. Spinal Cord: Conus medullaris terminates at the mid L2 level. Visualized cord demonstrates normal signal and size. Paraspinous Soft Tissues: No paravertebral masses. L1-L2: Normal appearance. L2-L3: Mild disc height loss and desiccation. Mild diffuse disc bulge with small superimposed broad-based left posterolateral protrusion. Mild facet and ligamentum flavum hypertrophy. Mild epidural lipomatosis. Mild canal stenosis. Mild left greater than right foraminal stenosis. No change. L3-L4: Mild disc desiccation and diffuse disc bulge with small superimposed broad-based left far lateral protrusion. Mild bilateral facet and ligamentum flavum hypertrophy. Mild epidural lipomatosis. Mild canal stenosis. Mild left greater than right foraminal stenosis. No change. L4-L5: Mild disc desiccation and diffuse disc bulge. Mild facet and ligamentum flavum hypertrophy. Mild epidural lipomatosis. Mild canal stenosis. Mild bilateral foraminal stenosis. No change. L5-S1: Mild disc height loss and desiccation. Mild diffuse disc bulge with small superimposed central protrusion. Mild facet hypertrophy bilaterally. Mild canal stenosis. Moderate bilateral foraminal stenosis. No change. IMPRESSION: 1. Multilevel degenerative disc and facet disease, as well as ligamentum flavum hypertrophy and epidural lipomatosis. 2. Mild multilevel canal stenosis. 3. Multilevel foraminal stenosis, worst at L5-S1 where there are moderate foraminal stenoses bilaterally. Dictated by: Ana Hutson M.D. on 04/03/2020 at 13:50 Approved by: Ana Hutson M.D. on 04/03/2020 at 13:54
== END ==
PROVIDERS: PCP Family Medicine; Referring Provider Physical Medicine & Rehabilitation; Visit Provider Physical Medicine & Rehabilitation
DX: M51.16 Intervertebral disc disorders with radiculopathy, lumbar region (principal); M51.17 Intervertebral disc disorders with radiculopathy, lumbosacral region; M48.061 Spinal stenosis, lumbar region without neurogenic claudication; M48.07 Spinal stenosis, lumbosacral region; E88.2 Lipomatosis, not elsewhere classified
CPT/HCPCS: 72148

== ENCOUNTER → 2020-04-27 11:59 | Outpatient (CLI) | payer MEDICARE, SELFPAY ==
[2019-02-09 10:38] VITALS: BMI 37.1
[2020-04-27 13:04] LABS: Add Manual Diff / Slide Review NO; Basophils Absolute Auto 100 /uL (0-100); Basophils Percent Auto 1.2 % (0-2); Eosinophils Absolute Auto 200 /uL (0-450); Eosinophils Percent Auto 2.7 % (2-4); Hematocrit 43.7 % (36-46); Hemoglobin 14.9 g/dL (12.0-16.0); Lymphocytes Absolute Auto 2000 /uL (1100-4500); Lymphocytes Percent Auto 34.2 % (25-40); Mean Corpuscular HGB Conc 34.1 % (30-36); Mean Corpuscular Hemoglobin 29.8 PG (26-34); Mean Corpuscular Volume 87.6 fL (80-100); Monocytes Absolute Auto 400 /uL (0-900); Monocytes Percent Auto 7.7 % (3-14); Neutrophils Absolute Auto 3100 /uL (1500-7000); Neutrophils Percent Auto 54.2 % (50-75); Platelet Count 239 X10^3/uL (150-400); Red Blood Cell Count 4.99 X10^6/uL (4.0-5.2); Red Cell Distribution Width 12.5 % (11.6-14.8); White Blood Cell Count 5.8 X10^3/uL (4.5-11.0)
[2020-04-27 13:44] LABS: Alanine Aminotransferase 29 IU/L (<35); Albumin 4.4 g/dL (3.5-5.0); Albumin Globulin Ratio 1.6 (1.0-2.8); Alkaline Phosphatase 79 U/L (38-126); Aspartate Aminotransferase 29 IU/L (14-36); BUN Creatinine Ratio 16.7 (6-22); Bilirubin Total 0.6 mg/dL (0.2-1.3); Blood Urea Nitrogen 11 mg/dL (7-17); Calcium 9.3 mg/dL (8.4-10.2); Carbon Dioxide 30 mmol/L (22-32); Chloride 105 mmol/L (98-107); Estimated Glomerular Filt Rate > 60.0 mL/min (>60); Globulin 2.7 g/dL (1.7-4.1); Glucose 94 mg/dL (70-100); HEMOLYSIS < 15 (0-50); Potassium 4.8 mmol/L (3.4-5.1); Sodium 138 mmol/L (137-145); Total Protein 7.1 g/dL (6.3-8.2)
[2020-04-27 13:53] LABS: Free T3, Triiodothyronine Free 4.73 pg/mL (2.77-5.27); Free T4, Direct Thyroxine 0.93 ng/dL (0.78-2.19)
[2020-04-27 14:06] LABS: Thyroid Stimulating Hormone 2.91 uIU/mL (0.47-4.68)
[2020-04-27 14:52] LABS: Creatinine Urine Random 27.9 mg/dL
[2020-04-27 15:14] LABS: Microalbumin Urine Random < 0.6 mg/dL (0-1.6)
== END ==
PROVIDERS: PCP Family Medicine; Referring Provider Family Medicine; Visit Provider Family Medicine
DX: I10 Essential (primary) hypertension (principal); R42 Dizziness and giddiness; E03.9 Hypothyroidism, unspecified
CPT/HCPCS: 36415; 80053; 82043; 82570; 84439; 84443; 84481; 85025

== ENCOUNTER → 2020-05-08 09:31 | Outpatient (CLI) | payer MEDICARE, SELFPAY ==
[2019-02-09 10:38] VITALS: BMI 37.1
--- NOTE | 2020-05-08 09:33 | DI.MRI.S_ITS ---
PROCEDURE: MR HEAD/BRAIN WO CON INDICATIONS: loss of conciousness episodes TECHNIQUE: Noncontrast axial T1 spin echo, axial T2 fast spin echo, sagittal and axial FLAIR, coronal T2 fast spin echo, axial gradient echo, axial diffusion and ADC through the brain. COMPARISON: [facility], , MR HEAD/BRAIN WO CON, 01/28/2019, 6:34. FINDINGS: Image quality: Excellent. CSF Spaces: Basal cisterns are patent. No extra-axial fluid collections. Ventricles are normal in size and shape. Brain: No intracranial masses or hemorrhage. Fitch/white matter interface is normal. Brainstem appears normal. Diffusion-weighted images demonstrate no acute ischemic insult. No chronic ischemic insults. Normal intravascular flow voids are present. Skull and face: Calvarium has normal marrow signal. Orbits appear normal. Sinuses: Sinuses and mastoids are clear. IMPRESSION: Negative brain MRI. No explanation for loss of consciousness. No recent infarct. Dictated by: Ana Hutson M.D. on 05/08/2020 at 10:18 Approved by: Aan Hutson M.D. on 05/08/2020 at 10:19
== END ==
PROVIDERS: PCP Family Medicine; Referring Provider Family Medicine; Visit Provider Family Medicine
DX: R42 Dizziness and giddiness (principal); R55 Syncope and collapse
CPT/HCPCS: 70551

== ENCOUNTER → 2020-11-09 10:55 | Outpatient (CLI) | payer MEDICARE, SELFPAY ==
[2019-02-09 10:38] VITALS: BMI 37.1
--- NOTE | 2020-11-09 | DI.MG.S_ITS ---
BILATERAL DIGITAL SCREENING MAMMOGRAM 3D/2D WITH CAD: 11/09/2020 CLINICAL: Routine screening. Family history of breast cancer. Comparison is made to exams dated: 06/21/2019 mammogram, 05/31/2018 mammogram, 05/05/2017 mammogram, and 04/27/2014 mammogram - [facility]. The tissue of both breasts is predominantly fatty. Current study was also evaluated with a Computer Aided Detection (CAD) system. No significant masses, calcifications, or other findings are seen in either breast. There has been no significant interval change. IMPRESSION: NEGATIVE There is no mammographic evidence of malignancy. A 1 year screening mammogram is recommended. This exam was interpreted at Station ID: [id number]. NOTE: For mammograms, a report in lay terms will be sent to the patient. Approximately 15% of breast malignancies will not be visualized mammographically. In the management of a palpable breast mass, a negative mammogram must not discourage biopsy of a clinically suspicious lesion. Electronically Signed By: Arnel rdz/lb:11/09/2020 15:35:06 letter sent: Normal Exam ACR BI-RADS Category 1: Negative 3341F
--- NOTE | 2020-11-09 10:57 | DI.CT.S_ITS ---
PROCEDURE: CT ABDOMEN PELVIS W CON INDICATIONS: ventral hernia TECHNIQUE: After the administration of intravenous contrast, axial sections acquired from the lung bases to the pubic symphysis. Coronal and sagittal reformats were performed. For radiation dose reduction, the following was used: automated exposure control, adjustment of mA and/or kV according to patient size. COMPARISON: [facility], CT, CT ABDOMEN PELVIS W CON, 08/25/2017, 9:56. FINDINGS: Image quality: Excellent. Lung bases: Unremarkable. Heart: No significant findings. ABDOMEN: Liver: Unremarkable. Gallbladder: The gallbladder has been previously resected Biliary ducts: Unremarkable. Pancreas: Unremarkable. Spleen: Unremarkable. Adrenal Glands: Unremarkable. Kidneys and Ureters: Unremarkable. Stomach and Bowel: Stomach, small bowel loops, and colon are unremarkable. Peritoneum: No abnormal intraperitoneal fluid. No free air. Ventral Wall: No hernias. Abdominal Nodes: No retroperitoneal or mesenteric adenopathy by size criteria. Vessels: Aorta and inferior vena cava are normal in size. PELVIS: Pelvic Organs: Unremarkable. Bladder: Unremarkable. Pelvic Nodes: No enlarged lymph nodes. Miscellaneous: No hernias are seen. Bones: Unremarkable. IMPRESSION: No ventral hernia is found. There is normal morphology of the umbilicus. A lipoma or other soft tissue abnormality that could mimic a ventral hernia is not found. Prior cholecystectomy incidentally noted. Dictated by: Brandyn Caceres M.D. on 11/09/2020 at 12:24 Approved by: Brandyn Caceres M.D. on 11/09/2020 at 13:06
== END ==
PROVIDERS: PCP Family Medicine; Referring Provider Surgery; Visit Provider Surgery
DX: Z12.31 Encounter for screening mammogram for malignant neoplasm of breast (principal); K43.9 Ventral hernia without obstruction or gangrene; Z80.3 Family history of malignant neoplasm of breast; Z90.49 Acquired absence of other specified parts of digestive tract
CPT/HCPCS: 74177; 77063; 77067; Q9967

== ENCOUNTER → 2021-02-25 09:11 | Outpatient (CLI) | payer MEDICARE, SELFPAY ==
[2019-02-09 10:38] VITALS: BMI 37.1
[2021-03-19 10:23] LABS: Magnesium 2.2 mg/dL (1.6-2.3)
== END ==
PROVIDERS: PCP Family Medicine; Referring Provider Physician Assistant; Visit Provider Physician Assistant
DX: R25.2 Cramp and spasm (principal)
CPT/HCPCS: 83735

== ENCOUNTER 2021-03-16 07:01 | Emergency (ER) | payer MEDICARE, SELFPAY ==
[2019-02-09 10:38] VITALS: BMI 37.1
[2021-03-16 07:11] VITALS: BP 152/99; PULSE 80; RESP 18; TEMP 36.5; O2SAT 97; BMI 36.3
--- NOTE | 2021-03-16 07:54 | DI.CT.S_ITS ---
PROCEDURE: CT KIDNEY URETER BLADDER (KUB) INDICATIONS: left flank TECHNIQUE: Axial sections were acquired from the lung bases to the pubic symphysis. Coronal and sagittal reformats were performed. For radiation dose reduction, the following was used: automated exposure control, adjustment of mA and/or kV according to patient size. COMPARISON: [facility], CT, CT ABDOMEN PELVIS W CON, 11/09/2020, 11:04. [facility], CT, KIDNEY/ URETER/BLADDER, 05/26/2011, 16:04. FINDINGS: Image quality: Excellent. Lung bases: Unremarkable. Heart: No significant findings. URINARY: Right Kidney: No stones or hydronephrosis. Right Ureter: No hydroureter. Left Kidney: No stones or hydronephrosis. Left Ureter: No hydroureter. Bladder: Normal wall thickness. No stones. ABDOMEN: Liver: Unremarkable. Gallbladder: Surgically absent. Biliary ducts: Unremarkable. Pancreas: Unremarkable. Spleen: Unremarkable. Adrenal Glands: Unremarkable. Stomach and Bowel: Stomach, small bowel loops, and colon are normal in caliber and wall thickness. Appendix is normal in appearance. There are few colonic diverticula without acute diverticulitis. Peritoneum: No abnormal intraperitoneal fluid. No free air. Ventral Wall: No hernia. Abdominal Nodes: No enlarged retroperitoneal or mesenteric lymph nodes. Vessels: Aorta and inferior vena cava are normal in size. PELVIS: Pelvic Organs: The uterus and ovaries appear within normal size limits. Pelvic Nodes: Unremarkable. Miscellaneous: No inguinal hernias are seen. Bones: Unremarkable. IMPRESSION: 1. No definite acute intra-abdominal abnormality. Specifically, no evidence of nephrolithiasis or obstructive uropathy. 2. Colonic diverticulosis without acute diverticulitis. Dictated by: Kel Galvin M.D. on 03/16/2021 at 7:23 Approved by: Kel Galvin M.D. on 03/16/2021 at 7:26
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
[2021-03-16 08:01] LABS: Add Manual Diff / Slide Review NO; Basophils Absolute Auto 100 /uL (0-100); Eosinophils Absolute Auto 200 /uL (0-450); Eosinophils Percent Auto 2.7 % (2-4); Hematocrit 42.7 % (36-46); Hemoglobin 15.1 g/dL (12.0-16.0); Lymphocytes Absolute Auto 1500 /uL (1100-4500); Lymphocytes Percent Auto 27.9 % (25-40); Mean Corpuscular HGB Conc 35.3 % (30-36); Mean Corpuscular Hemoglobin 30.1 PG (26-34); Mean Corpuscular Volume 85.3 fL (80-100); Monocytes Absolute Auto 500 /uL (0-900); Monocytes Percent Auto 8.9 % (3-14); Neutrophils Absolute Auto 3300 /uL (1500-7000); Neutrophils Percent Auto 59.5 % (50-75); Platelet Count 219 X10^3/uL (150-400); Red Cell Distribution Width 12.4 % (11.6-14.8); White Blood Cell Count 5.5 X10^3/uL (4.5-11.0)
[2021-03-16 08:12] LABS: Alanine Aminotransferase 39 IU/L (<35); Albumin 4.4 g/dL (3.5-5.0); Albumin Globulin Ratio 1.5 (1.0-2.8); Alkaline Phosphatase 70 U/L (38-126); Aspartate Aminotransferase 29 IU/L (14-36); BUN Creatinine Ratio 17.9 (6-22); Bilirubin Total 0.6 mg/dL (0.2-1.3); Blood Urea Nitrogen 12 mg/dL (7-17); Calcium 9.2 mg/dL (8.4-10.2); Carbon Dioxide 26 mmol/L (22-32); Chloride 105 mmol/L (98-107); Estimated Glomerular Filt Rate > 60.0 mL/min (>60); Globulin 2.9 g/dL (1.7-4.1); Glucose 99 mg/dL (70-100); HEMOLYSIS < 15 (0-50); Lipase 70 U/L (23-300); Potassium 4.2 mmol/L (3.4-5.1); Sodium 138 mmol/L (137-145); Total Protein 7.3 g/dL (6.3-8.2)
[2021-03-16] MEDS: HYDROMORPHONE 1 MG INJ IV (08:37)
[2021-03-16] MEDS: ONDANSETRON 4 MG/2 ML INJ IV (08:38)
[2021-03-16] MEDS: HYDROMORPHONE 0.5 MG INJ IV (09:39)
[2021-03-16 09:53] VITALS: BP 129/82; PULSE 65; RESP 16; O2SAT 97
== END 2021-03-16 09:54 | disposition home or self-care (01) ==
PROVIDERS: Emergency Provider Emergency Medicine; PCP Family Medicine
DX: G89.29 Other chronic pain (principal); M54.50 Low back pain, unspecified; R51.9 Headache, unspecified
CPT/HCPCS: 36415; 74176; 80053; 81003; 83690; 85025; 96374; 96375; 99284; J1170; J2405

== ENCOUNTER → 2021-03-21 18:55 | Outpatient (CLI) | payer MEDICARE, SELFPAY ==
[2019-02-09 10:38] VITALS: BMI 37.1
== END ==
PROVIDERS: PCP Family Medicine; Referring Provider Family Medicine; Visit Provider Family Medicine
DX: M54.12 Radiculopathy, cervical region (principal); M54.17 Radiculopathy, lumbosacral region; G89.29 Other chronic pain; Z53.20 Procedure and treatment not carried out because of patient's decision for unspecified reasons

== ENCOUNTER → 2021-03-26 15:48 | Outpatient (CLI) | payer MEDICARE, SELFPAY ==
[2019-02-09 10:38] VITALS: BMI 37.1
--- NOTE | 2021-03-26 15:58 | DI.MRI.S_ITS ---
PROCEDURE: MR CERVICAL SPINE WO CON INDICATIONS: neck pain, bilateral upper extremety numbess TECHNIQUE: Noncontrast sagittal T1 spin echo and T2 fast spin echo, sagittal STIR, foraminal oblique sagittal T2 fast spin echo, and axial gradient echo or T2 fast spin echo through the cervical spine. COMPARISON: CT, CT CERVICAL SPINE WO CON, 01/08/2019, 15:49. [facility], MR, MR CERVICAL SPINE WO CON, 12/26/2019, 15:50. FINDINGS: Image quality: Partially degraded by motion artifact. Alignment and Curvature: There is loss of normal cervical lordosis. Minimal grade 1 retrolisthesis of C6 on C7. Bone Marrow: Marrow demonstrates normal overall signal. Mild reactive signal throughout the endplates of the cervical and upper thoracic spine. Spinal Cord: Visualized spinal cord has normal size and signal. No cerebellar tonsillar herniation. Paraspinous Soft Tissues: No paravertebral masses. Prevertebral soft tissues are normal in thickness. Metallic artifact within the posterior paraspinous soft tissues at the C4-C6 level, as before. C2-C3: Congenital canal stenosis. Mild disc desiccation and diffuse disc bulge. Mild facet and uncovertebral hypertrophy bilaterally. Mild canal stenosis. Mild left greater than right foraminal stenosis. No significant change. C3-C4: Congenital canal stenosis. Mild disc height loss and desiccation. Mild diffuse disc bulge. Mild facet and uncovertebral hypertrophy bilaterally. Moderate canal stenosis. Increased, moderate right foraminal stenosis. No change in mild left foraminal stenosis. C4-C5: Congenital canal stenosis. Mild disc height loss and desiccation. Mild diffuse disc bulge with superimposed right paracentral protrusion. Mild facet and uncovertebral hypertrophy. Moderate to severe canal stenosis. Mild bilateral foraminal stenosis. No significant change. C5-C6: Congenital canal stenosis. Moderate disc height loss and desiccation. Mild diffuse disc bulge. Mild facet and uncovertebral hypertrophy bilaterally. Moderate to severe canal stenosis. No change in mild right foraminal stenosis. Increased, moderate to severe left foraminal stenosis with left C6 nerve root compression. C6-C7: Mild disc height loss. Moderate disc desiccation. Moderate diffuse disc bulge with superimposed left far lateral broad-based protrusion. Congenital canal stenosis. Mild facet and uncovertebral hypertrophy. Moderate to severe canal stenosis. Increased, severe left foraminal stenosis. No change in mild right foraminal stenosis. Left C7 nerve root compression, new since the prior examination. C7-T1: Mild disc height loss and desiccation. Mild diffuse disc bulge. Mild facet and uncovertebral hypertrophy bilaterally. Mild canal stenosis. Mild bilateral foraminal stenosis. IMPRESSION: 1. Diffuse congenital canal stenosis with superimposed disc and facet disease, as well as uncovertebral hypertrophy. 2. Multilevel canal stenoses, worst at C4-C5, C5-C6, and C6-C7, where there is moderate to severe canal stenosis. Evaluation for cord flattening at these levels is limited by motion artifact. 3. Multilevel foraminal stenoses, worst at C5-C6 and C6-C7 where there is associated intraforaminal nerve root compression. Recommend correlation with clinical symptoms to ascertain relevance of these findings. Dictated by: Ana Hutson M.D. on 03/26/2021 at 16:23 Approved by: Ana Hutson M.D. on 03/26/2021 at 16:30
--- NOTE | 2021-03-26 15:58 | DI.MRI.S_ITS ---
PROCEDURE: MR LUMBAR SPINE WO CON INDICATIONS: low back pain, bilateral lower extremity numbness TECHNIQUE: Noncontrast sagittal T1 spin echo and T2 fast echo, sagittal STIR, axial T1 and T2 fast spin echo through the lumbar spine. In cases with scoliosis, additional coronal T2 fast spin echo may be performed. COMPARISON: [facility], CR, XR LUMBAR SPINE WITH OLBIQUES PLUS FLEXION EXTENSION, 03/23/2020, 10:56. [facility], MR, MR LUMBAR SPINE WO CON, 04/03/2020, 13:14. FINDINGS: Image quality: Excellent. Alignment and Curvature: 5 lumbar type vertebral bodies are present by plain film. There is mild, grade 1 retrolisthesis of L2 on L3. Bone Marrow: Marrow is of normal overall signal. No acute vertebral body compression fractures. Mild reactive signal throughout the endplates of the lumbar and lower thoracic spine. Spinal Cord: Conus medullaris terminates at the upper L2 level. Visualized cord demonstrates normal signal and size. Paraspinous Soft Tissues: No paravertebral masses. T12-L1: Mild disc height loss and desiccation. Mild facet and ligamentum hypertrophy. Minimal canal stenosis. No foraminal stenosis. No significant change. L1-L2: Normal appearance. L2-L3: Mild disc height loss and desiccation. Mild diffuse disc bulge with small superimposed broad-based left posterolateral protrusion. Mild facet and ligamentum flavum hypertrophy. Mild epidural lipomatosis. Mild canal stenosis. Mild bilateral foraminal stenosis. No significant change. L3-L4: Mild disc desiccation. Small left posterolateral protrusion. Mild facet and ligamentum flavum hypertrophy. Mild epidural lipomatosis. Mild canal stenosis. Mild left greater than right foraminal stenosis. No significant change. L4-L5: Mild disc desiccation. New small superimposed right posterolateral protrusion. Mild bilateral facet hypertrophy. Mild epidural lipomatosis. Mild canal stenosis. Increased, moderate right foraminal stenosis. No change in mild left foraminal stenosis. L5-S1: Mild disc height loss and desiccation. Mild diffuse disc bulge with small superimposed central protrusion. Mild facet hypertrophy. No significant canal stenosis. Mild to moderate bilateral foraminal stenosis. No significant change. IMPRESSION: 1. Multilevel degenerative disc and facet disease, as well as ligamentum flavum hypertrophy and epidural lipomatosis. 2. Mild multilevel canal stenosis. 3. Multilevel foraminal stenoses, worst at L4-L5 and L5-S1 as described above. Dictated by: Ana Hutson M.D. on 03/26/2021 at 16:13 Approved by: Ana Hutson M.D. on 03/26/2021 at 16:17
== END ==
PROVIDERS: PCP Family Medicine; Referring Provider Family Medicine; Visit Provider Family Medicine
DX: M48.02 Spinal stenosis, cervical region (principal); M51.16 Intervertebral disc disorders with radiculopathy, lumbar region; M51.17 Intervertebral disc disorders with radiculopathy, lumbosacral region; M48.061 Spinal stenosis, lumbar region without neurogenic claudication; M50.11 Cervical disc disorder with radiculopathy, high cervical region; M48.07 Spinal stenosis, lumbosacral region; M54.50 Low back pain, unspecified; G56.93 Unspecified mononeuropathy of bilateral upper limbs; G57.93 Unspecified mononeuropathy of bilateral lower limbs; G89.29 Other chronic pain
CPT/HCPCS: 72141; 72148

== ENCOUNTER → 2021-07-03 14:44 | Outpatient (CLI) | payer MEDICARE, SELFPAY ==
[2019-02-09 10:38] VITALS: BMI 37.1
[2021-07-03 15:24] LABS: Appearance Urine UA CLEAR; Bilirubin Urine UA NEGATIVE (NEGATIVE); Color Urine UA YELLOW; Glucose Urine UA NEGATIVE (Negative); Ketones Urine UA NEGATIVE (NEGATIVE); Leukocyte Esterase Urine UA NEGATIVE (NEGATIVE); Nitrite Urine UA NEGATIVE (Negative); Occult Blood Urine UA NEGATIVE (Negative); Protein Urine UA NEGATIVE (Negative); Specific Gravity Urine UA 1.015 (1.000-1.035); Urobilinogen Urine UA 0.2 E.U./dL (0.2)
[2021-07-03 15:37] LABS: Bacteria Urine None Seen; Culture Indicated Urine Cult Not Indicated; RBC Urine None Seen (0-5/HPF); Squamous Epithelial Cell Urine 0-1 /HPF (0-5/HPF); WBC Urine 0-1/HPF (0-5/HPF)
[2021-07-03 15:54] LABS: Add Manual Diff / Slide Review NO; Basophils Absolute Auto 0 /uL (0-100); Basophils Percent Auto 0.6 % (0-2); Eosinophils Absolute Auto 200 /uL (0-450); Eosinophils Percent Auto 1.9 % (2-4); Hematocrit 43.5 % (36-46); Hemoglobin 15.3 g/dL (12.0-16.0); Lymphocytes Absolute Auto 2400 /uL (1100-4500); Lymphocytes Percent Auto 30.4 % (25-40); Mean Corpuscular HGB Conc 35.1 % (30-36); Mean Corpuscular Hemoglobin 30.3 PG (26-34); Mean Corpuscular Volume 86.3 fL (80-100); Monocytes Absolute Auto 500 /uL (0-900); Monocytes Percent Auto 6.2 % (3-14); Neutrophils Absolute Auto 4800 /uL (1500-7000); Neutrophils Percent Auto 60.9 % (50-75); Platelet Count 268 X10^3/uL (150-400); Red Blood Cell Count 5.04 X10^6/uL (4.0-5.2); White Blood Cell Count 7.8 X10^3/uL (4.5-11.0)
[2021-07-03 16:20] LABS: Alanine Aminotransferase 33 IU/L (<35); Albumin 4.6 g/dL (3.5-5.0); Albumin Globulin Ratio 1.6 (1.0-2.8); Alkaline Phosphatase 70 U/L (38-126); Aspartate Aminotransferase 28 IU/L (14-36); BUN Creatinine Ratio 13.7 (6-22); Bilirubin Total 0.6 mg/dL (0.2-1.3); Blood Urea Nitrogen 10 mg/dL (7-17); Calcium 9.4 mg/dL (8.4-10.2); Carbon Dioxide 30 mmol/L (22-32); Chloride 105 mmol/L (98-107); Cholesterol 215 mg/dL (140-199); Estimated Glomerular Filt Rate > 60.0 mL/min (>60); Globulin 2.9 g/dL (1.7-4.1); Glucose 85 mg/dL (70-100); HDL Cholesterol 49 mg/dL (40-60); HEMOLYSIS < 15 (0-50); LDL Cholesterol Calculated 134 mg/dL (<100); Sodium 140 mmol/L (137-145); Total Protein 7.5 g/dL (6.3-8.2); Triglycerides 160 mg/dL (35-150)
[2021-07-03 17:02] LABS: Free T3, Triiodothyronine Free 4.72 pg/mL (2.77-5.27)
[2021-07-03 17:16] LABS: TSH w/ Reflex to FT4 3.05 uIU/mL (0.47-4.68)
== END ==
PROVIDERS: PCP Family Medicine; Referring Provider Physician Assistant; Visit Provider Physician Assistant
DX: E03.9 Hypothyroidism, unspecified (principal); E04.2 Nontoxic multinodular goiter; K57.30 Diverticulosis of large intestine without perforation or abscess without bleeding; K62.5 Hemorrhage of anus and rectum; R10.30 Lower abdominal pain, unspecified; R35.0 Frequency of micturition; I10 Essential (primary) hypertension; Z13.220 Encounter for screening for lipoid disorders; Z13.6 Encounter for screening for cardiovascular disorders
CPT/HCPCS: 36415; 80053; 80061; 81001; 84443; 84481; 85025

== ENCOUNTER → 2021-08-05 09:50 | Outpatient (CLI) | payer MEDICARE, SELFPAY ==
[2019-02-09 10:38] VITALS: BMI 37.1
[2021-08-05 14:38] LABS: COVID19 -Nasal RAPID Negative (Negative)
== END ==
PROVIDERS: PCP Family Medicine; Visit Provider Surgery
DX: Z01.812 Encounter for preprocedural laboratory examination; Z20.822 Contact with and (suspected) exposure to COVID-19
CPT/HCPCS: 87635; C9803

== ENCOUNTER 2021-08-06 06:38 | Day surgery (SDC) | payer MEDICARE, SELFPAY ==
[2019-02-09 10:38] VITALS: BMI 37.1
--- NOTE | 2021-08-06 | PATH_ITS ---
[facility] Accession Number: [id number] . 01 Material submitted: . esophagus, E-G Junction - GE JUNCTION . 02 Diagnosis: Gastroesophageal Junction, Biopsy: Squamocolumnar junctional mucosa with no diagnostic abnormality. Negative for intestinal metaplasia. Negative for dysplasia and malignancy. . [facility] 08/13/2021 1657 Local . 02 Electronically signed: . Abbey Dixon MD, Pathologist NPI- [id number] . 01 Gross description: . GE JUNCTION: Received in formalin are 2 fragment(s) of valentine, soft tissue measuring 0.3 x 0.1 x 0.1 cm to 0.2 x 0.2 x 0.2 cm submitted entirely in 1 cassette(s) /CPE 08/07/2021 0914 Local . 02 Microscopic: . An AB/PAS stain was performed to evaluate for intestinal metaplasia and is negative. The control stain showed appropriate reactivity. . 02 Pathologist provided ICD-10: K62.5 . 02 CPT . 926846, [id number] Specimen Comment: A courtesy copy of this report has been sent to [phone] Performed at: 01 [facility] [address] [place] [address], [place], [place] [id number] MD Kel Hill MD Phone: [phone] Performed at: 02 [facility] [address] [place], [place] [id number] MD Abbey Dixon MD Phone: [phone]
[2021-08-06 06:56] VITALS: BP 120/93; PULSE 102; RESP 16; TEMP 36.1; O2SAT 96
[2021-08-06 06:58] VITALS: BMI 36.1
[2021-08-06] MEDS: LACTATED RINGERS 1,000 ML 200 ML IV (07:13)
--- NOTE | 2021-08-06 07:54 | PM.PREOP ---
Pre-operative Note Interval Note History & Physical reviewed/Exam performed by Physician: Yes Changes to H&P: No
[2021-08-06] MEDS: MIDAZOLAM 5 MG/5 ML VIAL 8 MG IV (08:01)
[2021-08-06] MEDS: LIDOCAINE 4% SOLN 50 ML 20 ML TOP (08:18)
--- NOTE | 2021-08-06 08:19 | PM.OP.EC ---
Operative Date/Time/Diagnoses Date of procedure: 08/06/21 Time of procedure: 08:19 Pre-op diagnosis: Blood per rectum, GERD Post-op diagnosis: same Procedure & Clinicians Study performed: Esophagoduodenoscopy and colonoscopy Same procedure as scheduled: Yes Indications: GERD, rectal bleeding Surgeon: Navi Mojica Procedure Notes Procedure in detail: Medications: Conscious sedation using 8mg IV midazolam and 175mcg IV of fentanyl The history and physical was performed/updated and the patient is ASA class is 2 . The procedure was discussed in detail with the patient. Potential risks complications including infection, bleeding, missed diagnosis, perforation, need for surgery, and were explained. Their questions were answered and informed consent was obtained. Patient placed in left lateral decubitus position. Time out was performed. Procedural sedation was administered with Versed and Fentanyl. A bite block was placed. the scope was inserted into the mouth and advanced through the esophagus and into the stomach. The pylorus was intubated and the duodenum was normal to the 2nd portion. The scope was retroflexed within the stomach and there was no hiatal hernia. No ulcers, or gastritis. The scope was withdrawn into the esophagus the Z line was seen at 35 cm from the incisions. There was mild inflammation at the GE junction no finesse Cowan's. Biopsy of the GE junction was performed with forceps. Stomach was desufflated and scope removed. Patient tolerated procedure well. Examination began with a thorough inspection of the perianal area there was no evidence of fissures, fistulae, external hemorrhoids or cutaneous malignancy. The colonoscopy scope was then placed into the anal canal and was advanced to the cecum, which was identified by the ileocecal valve, the appendiceal orifice and the confluence of the taenia. The scope was then slowly withdrawn examining colon thoroughly in all directions, irrigating it of any residual stool. FINDINGS 1. Grade 1 internal hemorrhoids no banding performed 2. Mild esophagitis The patient tolerated the procedure well. They will be discharged once criteria are met. The prep was of good/excellent quality. The withdrawl time was 8 minutes. The sedation time was 20minutes. Specimen(s): other (GE junction) Complications: none Impression: Esophagitis, grade 1 internal hemorrhoids Post-procedure Recommendations: High fiber diet and Continue medication(s) Plan for aftercare: Continue Pantoprazole 40 mg daily Disposition: same day surgery
[2021-08-06] MEDS: fentaNYL 250 MCG/5 ML INJ 175 MCG IV (08:20)
[2021-08-06 08:23] VITALS: BP 127/90; PULSE 89; RESP 17; TEMP 36.6; O2SAT 95
[2021-08-06 08:28] VITALS: BP 139/86; PULSE 87; RESP 18; O2SAT 94
[2021-08-06 08:33] VITALS: BP 137/92; PULSE 92; RESP 20; O2SAT 98
[2021-08-06 08:38] VITALS: BP 123/89; PULSE 96; RESP 14; O2SAT 95
[2021-08-06 08:43] VITALS: BP 136/93; PULSE 88; RESP 20; O2SAT 97
== END 2021-08-06 08:59 | disposition home or self-care (01) ==
PROVIDERS: PCP Family Medicine; Referring Provider Surgery; Visit Provider Surgery
PROC: 0DJ08ZZ Inspection of Upper Intestinal Tract, Via Natural or Artificial Opening Endoscopic (ICD-10-PCS; CPT 43235; principal; 2021-08-06 07:45)
PROC: 0DJD8ZZ Inspection of Lower Intestinal Tract, Via Natural or Artificial Opening Endoscopic (ICD-10-PCS; CPT 45378; 2021-08-06 07:45)
DX: K62.5 Hemorrhage of anus and rectum (principal); K21.00 Gastro-esophageal reflux disease with esophagitis, without bleeding; K64.0 First degree hemorrhoids
CPT/HCPCS: 43239; 45378; 99152; J2250; J3010

== ENCOUNTER → 2021-10-03 12:22 | Outpatient (CLI) | payer MEDICARE, SELFPAY ==
[2019-02-09 10:38] VITALS: BMI 37.1
--- NOTE | 2021-10-03 12:23 | DI.US.S_ITS ---
PROCEDURE: US THYROID INDICATIONS: Multiple thyroid nodules; goiter TECHNIQUE: Real-time scanning was performed of the thyroid gland, with image documentation. COMPARISON: [facility], US, US THYROID, 05/31/2018, 11:51. FINDINGS: Right: Thyroid lobe measures 6.2 x 2.4 x 3.1 cm, and contains numerous thyroid nodules. Left: Thyroid lobe measures 5.7 x 2.4 x 2.4 cm, and contains a nodule. Nodule number: 1 Location: Right upper pole Size: 1.6 x 0.8 x 1.1 cm. This nodule is not definitely identified on the prior study. Composition: Solid Echogenicity: Isoechoic Shape: wider than tall. Margins: Smooth Echogenic foci: Non Total points: 3 ACR TI-RADS category: Mildly suspicious Nodule number: 2 Location: Right lower pole Size: 1.2 x 1.2 x 1.1 cm, previously 1.1 x 0.9 x 1.3 cm. Composition: Solid Echogenicity: Hypoechoic Shape: wider than tall. Margins: Smooth Echogenic foci: None Total points: 4 ACR TI-RADS category: Moderately suspicious Nodule number: 3 (labeled as nodule 5 on the images. However, the 3rd and 4th nodules measured in the images are small, and the 4 largest nodules are described in the report) Location: Right middle pole/lower pole Size: 2.0 x 1.4 x 1.7 cm, previously 1.5 x 1.6 x 1.5 cm. Composition: Solid Echogenicity: Isoechoic Shape: wider than tall. Margins: Smooth Echogenic foci: None Total points: 3 ACR TI-RADS category: Mildly suspicious Nodule number: 4 Location: Left upper pole Size: 0.9 x 0.8 x 1.3 cm, previously 0.9 x 0.7 x 0.8 cm. Composition: Solid Echogenicity: Isoechoic Shape: wider than tall. Margins: Smooth Echogenic foci: None Total points: 3 ACR TI-RADS category: Mildly suspicious IMPRESSION: Multinodular goiter. Findings include multiple nodules which, according to size and imaging characteristics and the recommendations below should be followed in 12 months by a follow-up ultrasound. There is a single nodule which appears to have increased in size, from a maximum diameter of 1.6 cm to a current maximum diameter 2.0 cm. However, this nodule is only mildly suspicious. Recommendations are to sample mildly suspicious nodules which are 2.5 cm or larger. Comment: Recommend follow-up thyroid ultrasound in 12 months, based on recommendations below. ACR TI-RADS definitions and recommendations: TI-RADS 1 (benign): 0 points. FNA not needed. TI-RADS 2 (not suspicious): 2 points. FNA not needed. TI-RADS 3 (mildly suspicious): 3 points. * FNA if 2.5 cm or larger, follow up if 1.5 cm or larger (at 1, 3, and 5 years). TI-RADS 4 (moderately suspicious): 4-6 points. * FNA if 1.5 cm or larger, follow up if 1 cm or larger (at 1, 2, 3, and 5 years). TI-RADS 5 (highly suspicious): 7 points or more. * FNA if 1 cm or larger, follow up if 0.5 cm or larger (every year for 5 years). Dictated by: Luke Knutson M.D. on 10/03/2021 at 16:38 Approved by: Luke Knutson M.D. on 10/03/2021 at 16:48
--- NOTE | 2021-10-03 12:23 | DI.US.S_ITS ---
PROCEDURE: US PELVIC COMPLETE INDICATIONS: Pelvic Pain TECHNIQUE: Real-time scanning was performed of the pelvic organs, with image documentation. Additional endovaginal scanning was necessary due to incomplete visualization of the adnexal and endometrial structures by transabdominal scanning. COMPARISON: [facility], US, US PELVIC COMPLETE, 12/21/2018, 10:33. FINDINGS: Uterus: Absent. Complex cyst is noted at the cervix. Ovaries: Not visualized. Other: No pathologic free abdominal or pelvic fluid. IMPRESSION: Complex nabothian cyst. We strive to produce accurate, complete, and clear reports of imaging services. To assist us in improving patient care, this report was composed using standard report templates and voice recognition software. Therefore, it may contain abnormal punctuation, insertions and/or omissions. Occasional wrong-word or sound-alike substitutions may occur. Though we review the report and make efforts to correct it, we do recommend that the report be read carefully in proper context to recognize any text inaccuracies. Dictated by: Shannan Yi M.D. on 10/03/2021 at 16:10 Approved by: Shannan Yi M.D. on 10/03/2021 at 16:11
== END ==
PROVIDERS: PCP Family Medicine; Referring Provider Family Medicine; Visit Provider Family Medicine
DX: N88.8 Other specified noninflammatory disorders of cervix uteri (principal); R10.2 Pelvic and perineal pain; E04.2 Nontoxic multinodular goiter; E03.9 Hypothyroidism, unspecified
CPT/HCPCS: 76536; 76830; 76856

== ENCOUNTER → 2022-06-23 11:34 | Outpatient (CLI) | payer MEDICARE, SELFPAY ==
[2022-04-11 12:03] VITALS: BMI 37.1
--- NOTE | 2022-06-23 11:35 | DI.US.S_ITS ---
PROCEDURE: US PELVIC COMPLETE INDICATIONS: suprapubic/pelvic pain multiple lipomas TECHNIQUE: Real-time scanning was performed of the pelvic organs, with image documentation. Additional endovaginal scanning was necessary due to incomplete visualization of the adnexal and endometrial structures by transabdominal scanning. COMPARISON: [facility], , US PELVIC COMPLETE, 10/03/2021, 13:00. FINDINGS: Uterus: Surgically absent. Ovaries: The ovaries were not visualized. The bilateral adnexa are grossly unremarkable. Other: No pathologic free abdominal or pelvic fluid. IMPRESSION: Markedly limited study. No sonographic abnormalities. We strive to produce accurate, complete, and clear reports of imaging services. To assist us in improving patient care, this report was composed using standard report templates and voice recognition software. Therefore, it may contain abnormal punctuation, insertions and/or omissions. Occasional wrong-word or sound-alike substitutions may occur. Though we review the report and make efforts to correct it, we do recommend that the report be read carefully in proper context to recognize any text inaccuracies. Dictated by: Anna Jimenez M.D. on 06/23/2022 at 13:52 Approved by: Anna Jimenez M.D. on 06/23/2022 at 13:52
--- NOTE | 2022-06-23 11:35 | DI.US.S_ITS ---
PROCEDURE: US ABDOMEN COMPLETE INDICATIONS: RUQ pain, multiple lipomas TECHNIQUE: Real-time scanning was performed of the abdominal and retroperitoneal organs, with image documentation. COMPARISON: [facility], US, US ABDOMEN COMPLETE, 01/13/2019, 10:13. FINDINGS: Liver: Liver is normal in size and homogeneous in echotexture. A 4 mm echogenic focus is present within the superior aspect of the right hepatic lobe suggesting a small hepatic hemangioma. Gallbladder: Surgically absent. Biliary ducts: Intrahepatic bile ducts are non-dilated. Extrahepatic bile duct caliber measures 3 mm. Normal is 6-7 mm or less in diameter, or 10 mm or less post-cholecystectomy. Pancreas: Visualized portions of the pancreas are sonographically normal. Spleen: Spleen is normal in size and homogeneous in echotexture. Kidneys: Kidneys are normal in size and echotexture. Right kidney measures 11.6 cm long; left kidney measures 9 point cm long. No hydronephrosis or nephrolithiasis. No solid masses. Aorta: Visualized aorta is normal in caliber at less than 3 cm. Iliacs: Proximal common iliac arteries are normal in caliber at less than 2.5 cm. IVC: Intrahepatic inferior vena cava is patent. Miscellaneous: No free abdominal fluid. Multiple lipomas are visualized within the anterior subcutaneous fat. IMPRESSION: 1. No cholelithiasis or findings to suggest choledocholithiasis or acute cholecystitis. Dictated by: Anna Jimenez M.D. on 06/23/2022 at 13:50 Approved by: Anna Jimenez M.D. on 06/23/2022 at 13:52
== END ==
PROVIDERS: PCP Family Medicine; Referring Provider Family Medicine; Visit Provider Family Medicine
DX: R10.11 Right upper quadrant pain (principal); R10.2 Pelvic and perineal pain; D17.1 Benign lipomatous neoplasm of skin and subcutaneous tissue of trunk
CPT/HCPCS: 76700; 76856

== ENCOUNTER → 2022-07-14 09:32 | Outpatient (CLI) | payer MEDICARE, SELFPAY ==
[2022-04-11 12:03] VITALS: BMI 37.1
--- NOTE | 2022-07-14 09:33 | DI.NM.S_ITS ---
PROCEDURE: NM SUJATHA PERF SPECT R&S PHARM Rest and pharmacological stress myocardial perfusion SPECT with gated imaging and ejection fraction RADIOPHARMACEUTICAL: 11.6 mCi Tc-99m tetrafosmin IV at rest and 25.6 mCi Tc-99m tetrafosmin IV at peak effect of pharmacological stress. [id number] was performed. INDICATIONS: chest pain TECHNIQUE: Radiopharmaceutical was injected at peak stress test, and also at rest. SPECT images were obtained. SPECT myocardial perfusion images were displayed in short axis, horizontal long axis, and vertical long axis views. Gated images were reviewed using [employer] software. COMPARISON: None. CARDIAC STRESS: A pharmacologic stress test was performed under the supervision of an attending staff, using an infusion of lexiscan 0.4mg IV X1. Hemodynamic data: There is normal blood pressure and heart rate response to pharmacologic stress. Symptoms: The patient denied anginal chest pain. Aminophylline: none EKG: No diagnostic changes of ischemia; no ectopy. FINDINGS: Raw data: There is good myocardial uptake of radiotracer. No significant motion artifacts. Left ventricle function: Gated images demonstrate normal left ventricular wall thickening. No segmental wall motion abnormalities. No transient ischemic dilation; TID is 0.93 (normal less than 1.3). Left ventricle resting end diastolic volume is 89 mL. Left ventricle stress ejection fraction is 81%; normal range is above 45%. Myocardial perfusion: There is normal distribution of activity in the right and left ventricular myocardium. No fixed or reversible perfusion defects. IMPRESSION: Low risk, normal pharmaceutical nuclear stress test with normal left ventricular systolic function. Dictated by: Arleen Pabon MD on 07/15/2022 at 15:40 Approved by: Arleen Pabon MD on 07/15/2022 at 15:41
== END ==
PROVIDERS: PCP Family Medicine; Referring Provider Family Medicine; Visit Provider Family Medicine
DX: R07.9 Chest pain, unspecified (principal)
CPT/HCPCS: 78452; 93017; A9502; J2785

== ENCOUNTER → 2022-10-22 08:44 | Outpatient (CLI) | payer MEDICARE, SELFPAY ==
[2022-04-11 12:03] VITALS: BMI 37.1
--- NOTE | 2022-10-22 08:45 | DI.US.S_ITS ---
PROCEDURE: US THYROID INDICATIONS: Multiple thyroid nodules; goiter 1 yr f/u TECHNIQUE: Real-time scanning was performed of the thyroid gland, with image documentation. COMPARISON: [facility], US, US THYROID, 05/31/2018, 11:51. [facility], US, THYROID, 04/16/2017, 10:53. [facility], US, US THYROID, 10/03/2021, 12:42. FINDINGS: Right: Thyroid lobe measures 7.2 x 2.8 x 3.0 cm, and is homogeneous in echotexture. Left: Thyroid lobe measures 4.6 x 2.6 x 2.4 cm, and is homogenous in echotexture. Isthmus: 1.1 mm thick. Nodule number: 1 Location: Right superior pole Size: 1.5 x 1.7 x 0.8 cm, previously 1.3 x 1.6 by 0.8 cm. Composition: Solid Echogenicity: Isoechoic Shape: wider than tall. Margins: Smooth Echogenic foci: No Total points: Three ACR TI-RADS category: Mildly suspicious Nodule number: 2 Location: Dorsal, possibly partially exophytic, right inferior pole Size: 1.2 x 1.0 x 1.2 cm, stable.. Composition: Solid Echogenicity: Hypoechoic Shape: wider than tall. Margins: Smooth Echogenic foci: No Total points: Four ACR TI-RADS category: Moderately suspicious Nodule number: 3 Location: Right superior pole Size: 0.6 cm, stable Composition: Solid Echogenicity: Hypoechoic Shape: wider than tall. Margins: Smooth Echogenic foci: No Total points: Four ACR TI-RADS category: Moderately suspicious Nodule number: 4. Coarse calcification. Nodule number: 5 Location: Right inferior pole medially Size: 2.0 x 1.9 x 2.0 cm, previously 2.1 by 1.4 x 1.7 cm. Composition: Solid Echogenicity: Isoechoic Shape: wider than tall. Margins: Smooth Echogenic foci: No Total points: Three ACR TI-RADS category: Mildly suspicious Nodule number: Six Location: Left superior pole Size: 2.2 x 1.2 x 2.0 cm, previously 1.3 x 0.8 x 0.9 cm. Measured nodules not definitely the same as the previous study. Composition: Solid Echogenicity: Isoechoic Shape: wider than tall. Margins: Smooth Echogenic foci: No Total points: Three ACR TI-RADS category: Mildly suspicious IMPRESSION: 1. Enlarging and vaguely nodular thyroid gland with morphology consistent with multinodular goiter. Several large nodular regions were measured, isoechoic to normal thyroid tissue. 2. Nodule two is unique given morphology and potentially partially exophytic position. No size or morphology change compared to prior, compared to 2019, it has decreased in size. Differential diagnosis includes a parathyroid adenoma given position. Correlate with lab values. Given relative five year stability, no further follow-up is required unless there is a change by lab values. 3. The other moderately suspicious nodule in the superior right thyroid (nodule three), measures 6 mm, too small to require follow-up. ACR TI-RADS definitions and recommendations: TI-RADS 1 (benign): 0 points. FNA not needed. TI-RADS 2 (not suspicious): 2 points. FNA not needed. TI-RADS 3 (mildly suspicious): 3 points. * FNA if 2.5 cm or larger, follow up if 1.5 cm or larger (at 1, 3, and 5 years). TI-RADS 4 (moderately suspicious): 4-6 points. * FNA if 1.5 cm or larger, follow up if 1 cm or larger (at 1, 2, 3, and 5 years). TI-RADS 5 (highly suspicious): 7 points or more. * FNA if 1 cm or larger, follow up if 0.5 cm or larger (every year for 5 years). Dictated by: Rosette Sawant M.D. on 10/22/2022 at 9:31 Approved by: Rosette Sawant M.D. on 10/22/2022 at 9:50
== END ==
LOC: US 08:45
PROVIDERS: PCP Family Medicine; Referring Provider Family Medicine; Visit Provider Family Medicine
DX: E04.2 Nontoxic multinodular goiter (principal); E03.9 Hypothyroidism, unspecified
CPT/HCPCS: 76536

== ENCOUNTER → 2022-11-24 12:41 | Outpatient (CLI) | payer MEDICARE, SELFPAY ==
[2022-04-11 12:03] VITALS: BMI 37.1
[2022-11-24 13:21] LABS: Add Manual Diff / Slide Review NO; Basophils Absolute Auto 100 /uL (0-100); Basophils Percent Auto 1.1 % (0-2); Eosinophils Absolute Auto 100 /uL (0-450); Hematocrit 44.7 % (36-46); Hemoglobin 15.9 g/dL (12.0-16.0); Lymphocytes Absolute Auto 2000 /uL (1100-4500); Lymphocytes Percent Auto 27.9 % (25-40); Mean Corpuscular HGB Conc 35.6 % (30-36); Mean Corpuscular Hemoglobin 30.4 PG (26-34); Mean Corpuscular Volume 85.3 fL (80-100); Monocytes Absolute Auto 500 /uL (0-900); Monocytes Percent Auto 6.2 % (3-14); Neutrophils Absolute Auto 4600 /uL (1500-7000); Neutrophils Percent Auto 62.8 % (50-75); Platelet Count 267 X10^3/uL (150-400); Red Blood Cell Count 5.24 X10^6/uL (4.0-5.2); Red Cell Distribution Width 12.6 % (11.6-14.8); White Blood Cell Count 7.3 X10^3/uL (4.5-11.0)
[2022-11-24 13:51] LABS: Alanine Aminotransferase 25 IU/L (<35); Albumin 4.6 g/dL (3.5-5.0); Albumin Globulin Ratio 1.6 (1.0-2.8); Alkaline Phosphatase 100 U/L (38-126); Aspartate Aminotransferase 24 IU/L (14-36); BUN Creatinine Ratio 18.3 (6-22); Bilirubin Total 0.5 mg/dL (0.2-1.3); Blood Urea Nitrogen 13 mg/dL (7-17); Calcium 9.6 mg/dL (8.4-10.2); Carbon Dioxide 28 mmol/L (22-32); Chloride 102 mmol/L (98-107); Cholesterol 237 mg/dL (140-199); Estimated Glomerular Filt Rate > 60 mL/min (>60); Globulin 2.8 g/dL (1.7-4.1); Glucose 92 mg/dL (70-100); HDL Cholesterol 58 mg/dL (40-60); HEMOLYSIS < 15 (0-50); LDL Cholesterol Calculated 149 mg/dL (<100); Potassium 4.4 mmol/L (3.4-5.1); Sodium 138 mmol/L (137-145); Total Protein 7.4 g/dL (6.3-8.2); Triglycerides 152 mg/dL (35-150)
[2022-11-24 13:52] LABS: Free T3, Triiodothyronine Free 4.99 pg/mL (2.77-5.27); Free T4, Direct Thyroxine 0.94 ng/dL (0.78-2.19)
[2022-11-24 14:10] LABS: Testosterone 41.3 ng/dL (5.71-77.0)
[2022-11-24 16:12] LABS: Creatinine Urine Random 102.2 mg/dL
[2022-11-24 16:13] LABS: Microalbumin Urine Random < 0.6 mg/dL (0-1.6)
[2022-11-24 16:49] LABS: Follicle Stimulating Hormone 38.2 mIU/mL; Luteinizing Hormone 15.6 mIU/mL
[2022-11-29 15:36] LABS: Estrogen 85 pg/mL (.)
== END ==
PROVIDERS: PCP Family Medicine; Referring Provider Family Medicine; Visit Provider Family Medicine
DX: I10 Essential (primary) hypertension (principal); E04.1 Nontoxic single thyroid nodule; N95.1 Menopausal and female climacteric states
CPT/HCPCS: 36415; 80053; 80061; 82043; 82570; 82672; 83001; 83002; 84403; 84439; 84443; 84481; 85025

== ENCOUNTER → 2023-03-12 11:31 | Outpatient (CLI) | payer MEDICARE, SELFPAY ==
[2022-04-11 12:03] VITALS: BMI 37.1
--- NOTE | 2023-03-12 11:32 | DI.US.S_ITS ---
PROCEDURE: US SOFT TISSUE HEAD AND NECK INDICATIONS: LINEAR IMMUNOGLOBULIN A DERMATOSIS - PALPABLE NECK LUMP TECHNIQUE: Real-time scanning was performed of the neck region of interest, with image documentation. COMPARISON: None. FINDINGS: The regions of palpable lumps in the upper neck, inferior to the mandible or interrogated with a high megahertz linear transducer. In the midline superior neck, there is a cystic structure measuring 2.6 x 2.2 x 1.3 cm. There are prominent lymph nodes present which also may correspond to palpable abnormalities. On the right is a lymph node measuring 0.9 x 1.3 x 0.9 cm. On the left is lymph node measuring 1.1 x 0.8 x 0.5 cm. IMPRESSION: Prominent cystic structure near midline in the neck superiorly. Bilateral somewhat prominent lymph nodes, not abnormal in appearance. Comment: Consider CT neck for further evaluation. Dictated by: Luke Knutson M.D. on 03/13/2023 at 12:25 Approved by: Luke Knutson M.D. on 03/13/2023 at 12:36
--- NOTE | 2023-03-12 11:32 | DI.RAD.S_ITS ---
PROCEDURE: XR HIP W PEL IF DONE NABILA MIN 4V INDICATIONS: pain TECHNIQUE: AP pelvis with lateral view(s) of the right and left hip(s). COMPARISON: [facility], , XR HIP W PEL IF DONE RT 2V, 01/11/2019, 10:32. FINDINGS: Bones: No fractures or dislocations. Pelvic ring appears intact. No suspicious bony lesions. Soft tissues: The visualized bowel gas pattern is normal. No suspicious soft tissue calcifications. IMPRESSION: No acute bony abnormality. Dictated by: Bernard Cervantes M.D. on 03/12/2023 at 15:12 Approved by: Bernard Cervantes M.D. on 03/12/2023 at 15:13
--- NOTE | 2023-03-12 11:32 | DI.CT.S_ITS ---
PROCEDURE: CT ABDOMEN PELVIS W CON INDICATIONS: Chronic lower abdominal pain TECHNIQUE: After the administration of oral and intravenous contrast, axial sections were acquired from the lung bases to the pubic symphysis. Coronal and sagittal reformats were performed. For radiation dose reduction, the following was used: automated exposure control, adjustment of mA and/or kV according to patient size. COMPARISON:[facility], CT, CT ABDOMEN PELVIS W CON, 11/09/2020, 11:04. FINDINGS: Image quality: Excellent. Lung bases: Lung bases are clear. Heart size is normal. Solid organs: Liver: The liver has no mass or intrahepatic biliary ductal dilatation. The portal vein and hepatic veins are patent. Biliary: Status post cholecystectomy. Pancreas: The pancreas has no mass or ductal dilatation. There is no surrounding inflammation. Spleen: Normal size. There are no masses. Adrenals: No hypertrophy or nodules. Kidneys: No obstructive calculus or hydronephrosis. No solid mass. No cystic mass. Peritoneum and bowel: The distal esophagus and stomach are normal. The small bowel has a normal caliber and appearance. The terminal ileum is normal. The large bowel has a normal caliber and appearance. The appendix is normal. No free fluid or air. Nodes and vessels: No retroperitoneal or mesenteric adenopathy by size criteria. Aorta and inferior vena cava are normal in size. Miscellaneous: No abdominal wall mass or hernia. PELVIS: Genitourinary: The bladder has no wall thickening or mass. No bladder calcifications. Status post hysterectomy. No pelvic congestion. Bones: No suspicious bony lesions. No vertebral body compression fractures. IMPRESSION: 1. No acute abdominal or pelvic abnormality. 2. No abnormality to explain chronic lower abdominal pain is identified. Dictated by: Bernard Cervantes M.D. on 03/12/2023 at 15:06 Approved by: Bernard Cervantes M.D. on 03/12/2023 at 15:12
== END ==
PROVIDERS: PCP Family Medicine; Referring Provider Family Medicine; Visit Provider Family Medicine
DX: L13.8 Other specified bullous disorders (principal); R10.31 Right lower quadrant pain; R10.32 Left lower quadrant pain; G89.29 Other chronic pain
CPT/HCPCS: 73522; 74177; 76536; Q9967

== ENCOUNTER → 2023-04-07 10:53 | Outpatient (CLI) | payer MEDICARE, SELFPAY ==
[2022-04-11 12:03] VITALS: BMI 37.1
--- NOTE | 2023-04-07 11:04 | DI.CT.S_ITS ---
PROCEDURE: CT SOFT TISSUE NECK W CON INDICATIONS: abnormal U/S, neck mass TECHNIQUE: After the administration of intravenous contrast, 3.0 mm axial sections acquired from the sella to the aortic arch. Additional oblique axial 3.0 mm sections acquired through the pharynx. 3 mm thick coronal and sagittal reformats were generated. For radiation dose reduction, the following was used: automated exposure control. COMPARISON: [facility], SOFT TISSUE HEAD AND NECK, 03/12/2023, 12:44. FINDINGS: Image quality: Excellent. Lymph nodes: No enlarged lymph nodes seen throughout the neck. Vessels: Visualized vasculature appears patent. Neck spaces: Just inferior to the hyoid bone there is a septated cystic structure measuring approximately 1.8 x 1.1 x 1.6 centimeters. Just inferior, there is a more hyperattenuating solid focus measuring 8 x 6 millimeters which may represent ectopic thyroid. The oropharynx, nasopharynx, and pharynx demonstrate no mucosal lesions. The vocal cords, false vocal cords, pyriform sinuses, epiglottis, vallecula, and tongue base all appear normal. Glands: The parotid and submandibular glands appear normal. Thyroid gland is enlarged and heterogeneous with multiple nodules measuring up to 2.1 centimeters. Miscellaneous: Visualized brain and orbits appear normal. Lung apices appear clear. Superficial soft tissues appear normal. Bones: No suspicious bony lesions. Visualized sinuses and mastoids appear unremarkable. Degenerative changes of the spine. IMPRESSION: 1. There is a septated cystic structure just inferior to the hyoid bone measuring 1.8 centimeters. Differential includes thyroglossal duct cyst. Recommend clinical correlation to exclude infected cyst. Recommend clinical follow-up and if there is evidence of growth, recommend follow-up imaging. 2. There is a small hyperattenuating focus just inferior to the cyst measuring 8 millimeters, may represent ectopic thyroid tissue versus lymph node. 3. The thyroid gland is enlarged with multiple nodules measuring up to 2.1 centimeters. Recommend dedicated thyroid ultrasound if not already obtained. Dictated by: Surjit Ku M.D. on 04/08/2023 at 8:31 Approved by: Surjit Ku M.D. on 04/08/2023 at 8:42
== END ==
PROVIDERS: PCP Family Medicine; Referring Provider Family Medicine; Visit Provider Family Medicine
DX: E04.2 Nontoxic multinodular goiter (principal); R93.89 Abnormal findings on diagnostic imaging of other specified body structures; R59.1 Generalized enlarged lymph nodes
CPT/HCPCS: 70491

== ENCOUNTER → 2023-05-19 11:14 | Outpatient (CLI) | payer MEDICARE, SELFPAY ==
[2022-04-11 12:03] VITALS: BMI 37.1
--- NOTE | 2023-05-19 11:16 | DI.RAD.S_ITS ---
PROCEDURE: XR SHOULDER RT MIN 2V INDICATIONS: shoulder pain TECHNIQUE: 3 views of the shoulder were acquired. COMPARISON: [facility], SHOULDER MINIMUM 2 VIEW LEFT, 07/08/2016, 10:55. [facility], SHOULDER MINIMUM 2VIEW RIGHT, 06/27/2011, 10:10. FINDINGS: Bones: Moderate acromioclavicular and mild glenohumeral degenerative changes. Soft tissues: No suspicious calcifications. IMPRESSION: Moderate acromioclavicular and mild glenohumeral degenerative changes. No acute radiographic abnormality. If there is high concern for further derangement, consider MRI evaluation. Dictated by: Marcial Guaman M.D. on 05/19/2023 at 14:54 Approved by: Marcial Guaman M.D. on 05/19/2023 at 14:54
== END ==
LOC: RAD 11:15
PROVIDERS: PCP Family Medicine; Referring Provider Family Medicine; Visit Provider Family Medicine
DX: M25.511 Pain in right shoulder (principal)
CPT/HCPCS: 73030

== ENCOUNTER → 2023-07-22 12:03 | Outpatient (CLI) | payer MEDICARE, SELFPAY ==
[2022-04-11 12:03] VITALS: BMI 37.1
== END ==
PROVIDERS: PCP Family Medicine; Visit Provider Physician Assistant
DX: R35.0 Frequency of micturition (principal)
CPT/HCPCS: 87077; 87086; 87186

== ENCOUNTER → 2023-08-18 10:26 | Outpatient (CLI) | payer MEDICARE, SELFPAY ==
[2022-04-11 12:03] VITALS: BMI 37.1
[2023-08-18 11:36] LABS: Add Manual Diff / Slide Review NO; Basophils Absolute Auto 100 /uL (0-100); Basophils Percent Auto 1.1 % (0-2); Eosinophils Absolute Auto 200 /uL (0-450); Eosinophils Percent Auto 4.4 % (2-4); Hematocrit 41.1 % (36-46); Hemoglobin 14.4 g/dL (12.0-16.0); Lymphocytes Absolute Auto 2100 /uL (1100-4500); Lymphocytes Percent Auto 40.7 % (25-40); Mean Corpuscular HGB Conc 34.9 % (30-36); Mean Corpuscular Hemoglobin 30.9 PG (26-34); Mean Corpuscular Volume 88.5 fL (80-100); Monocytes Absolute Auto 400 /uL (0-900); Monocytes Percent Auto 7.4 % (3-14); Neutrophils Absolute Auto 2400 /uL (1500-7000); Neutrophils Percent Auto 46.4 % (50-75); Platelet Count 247 X10^3/uL (150-400); Red Blood Cell Count 4.64 X10^6/uL (4.0-5.2); Red Cell Distribution Width 12.8 % (11.6-14.8); White Blood Cell Count 5.2 X10^3/uL (4.5-11.0)
[2023-08-18 11:55] LABS: Creatinine Urine Random 64.1 mg/dL
[2023-08-18 11:57] LABS: Hemoglobin A1C% w Est Avg Glu 5.3 % (4.0-6.0)
[2023-08-18 12:00] LABS: Alanine Aminotransferase 30 IU/L (<35); Albumin 4.5 g/dL (3.5-5.0); Albumin Globulin Ratio 1.8 (1.0-2.8); Alkaline Phosphatase 72 U/L (38-126); Aspartate Aminotransferase 24 IU/L (14-36); BUN Creatinine Ratio 21.1 (6-22); Bilirubin Total 0.7 mg/dL (0.2-1.3); Blood Urea Nitrogen 15 mg/dL (7-17); Calcium 9.1 mg/dL (8.4-10.2); Carbon Dioxide 28 mmol/L (22-32); Chloride 107 mmol/L (98-107); Cholesterol 212 mg/dL (140-199); Estimated Glomerular Filt Rate > 60 mL/min (>60); Globulin 2.5 g/dL (1.7-4.1); Glucose 92 mg/dL (70-100); HDL Cholesterol 52 mg/dL (40-60); HEMOLYSIS < 15 (0-50); LDL Cholesterol Calculated 136 mg/dL (<100); Potassium 4.5 mmol/L (3.4-5.1); Sodium 137 mmol/L (137-145); Triglycerides 121 mg/dL (35-150)
[2023-08-18 12:03] LABS: Microalbumin Urine Random < 0.6 mg/dL (0-1.6)
== END ==
LOC: LAB 10:26
PROVIDERS: PCP Family Medicine; Referring Provider Family Medicine; Visit Provider Family Medicine
DX: I10 Essential (primary) hypertension (principal); E66.9 Obesity, unspecified; R07.9 Chest pain, unspecified
CPT/HCPCS: 36415; 80053; 80061; 82043; 82570; 83036; 85025

== ENCOUNTER → 2023-11-27 12:08 | Outpatient (CLI) | payer MEDICARE, SELFPAY ==
[2022-04-11 12:03] VITALS: BMI 37.1
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
== END ==
PROVIDERS: PCP Family Medicine; Referring Provider Nurse Practitioner Family; Visit Provider Nurse Practitioner Family
DX: S61.451A Open bite of right hand, initial encounter (principal); M79.89 Other specified soft tissue disorders; W64.XXXA Exposure to other animate mechanical forces, initial encounter
CPT/HCPCS: 73130

== ENCOUNTER → 2023-12-17 09:50 | Outpatient (CLI) | payer MEDICARE, SELFPAY ==
[2022-04-11 12:03] VITALS: BMI 37.1
--- NOTE | 2023-12-17 09:52 | DI.MG.S_ITS ---
BILATERAL DIGITAL SCREENING MAMMOGRAM 3D/2D WITH CAD: 12/17/2023 CLINICAL: Routine screening. Family history of breast cancer. Comparison is made to exams dated: 11/09/2020 mammogram, 06/21/2019 mammogram, and 05/31/2018 mammogram - [facility]. There are scattered areas of fibroglandular density in both breasts (category b / 25%-50% glandular tissue). Current study was also evaluated with a Computer Aided Detection (CAD) system. No significant masses, calcifications, or other findings are seen in either breast. There has been no significant interval change. IMPRESSION: NEGATIVE There is no mammographic evidence of malignancy. A 1 year screening mammogram is recommended. Based on the Tyrer Cuzick model (a risk assessment model) the patient's lifetime risk is 9.0% and her 10 year risk is 2.4%. According to the ACR, ACS, and NCCN guidelines, an annual breast MRI exam along with mammogram is recommended if the patient's lifetime risk is 20% or greater. This exam was interpreted at Station ID: [id number]. NOTE: For mammograms, a report in lay terms will be sent to the patient. Approximately 15% of breast malignancies will not be visualized mammographically. In the management of a palpable breast mass, a negative mammogram must not discourage biopsy of a clinically suspicious lesion. Electronically Signed By: Marcial kat/lb:12/17/2023 13:19:12 letter sent: Normal Exam ACR BI-RADS Category 1: Negative [id number]
== END ==
PROVIDERS: PCP Family Medicine; Referring Provider Family Medicine; Visit Provider Family Medicine
DX: Z12.31 Encounter for screening mammogram for malignant neoplasm of breast (principal); R92.323 Mammographic fibroglandular density, bilateral breasts; Z80.3 Family history of malignant neoplasm of breast
CPT/HCPCS: 77063; 77067

== ENCOUNTER → 2024-03-26 09:00 | Outpatient (CLI) | payer MEDICARE, SELFPAY ==
[2024-03-09 10:15] VITALS: BMI 37.1
--- NOTE | 2024-03-26 09:01 | DI.MRI.S_ITS ---
PROCEDURE: MR LUMBAR SPINE WO CON INDICATIONS: chronic back pain with radiculopathy, worsening TECHNIQUE: Noncontrast sagittal T1 spin echo and T2 fast echo, sagittal STIR, and T2 fast spin echo through the lumbar spine. In cases with scoliosis, additional coronal T2 fast spin echo may be performed. COMPARISON: [facility], MR, MR LUMBAR SPINE WO CON, 03/26/2021, 16:17. FINDINGS: Image quality: Excellent. Alignment and Curvature: There is normal bony alignment. Bone Marrow: Marrow is of normal overall signal. No acute vertebral body compression fractures. Hemangioma again noted at L2. Spinal Cord: Conus medullaris terminates at the L1 level. Visualized cord demonstrates normal signal and size. Paraspinous Soft Tissues: No paravertebral masses. T12-L1: Mild facet degenerative changes. No significant neural foraminal or central spinal stenosis. L1-L2: Moderate left-sided and right-sided facet degenerative changes. Some disc desiccation. Ligamentum flavum hypertrophy. No significant central spinal or neural foraminal stenosis. L2-L3: Disc desiccation and disc space narrowing, moderate bilateral facet degenerative changes with proliferative osteophytes and ligamentum flavum hypertrophy. Mild circumferential disc bulge. Mild central spinal stenosis. No significant neural foraminal stenosis. L3-L4: Disc desiccation. Moderate bilateral facet degenerative changes and ligamentum flavum hypertrophy. Mild circumferential disc bulge. Mild central spinal stenosis. Mild bilateral neural foraminal stenosis. L4-L5: Advanced facet degenerative changes bilaterally with ligamentum flavum hypertrophy. Disc desiccation. Mild circumferential disc bulge. Overall mild central spinal stenosis and mild right side greater than left neural foraminal stenosis. L5-S1: Advanced facet degenerative changes. Disc desiccation with circumferential disc bulge. Mild central spinal and bilateral neural foraminal stenosis. IMPRESSION: Overall stable appearance to the lumbar spine with multilevel lumbar spondylotic degenerative changes as above. Dictated by: Brodie Tse M.D. on 03/28/2024 at 8:26 Approved by: Brodie Tse M.D. on 03/28/2024 at 8:38
--- NOTE | 2024-03-26 09:01 | DI.MRI.S_ITS ---
PROCEDURE: MR CERVICAL SPINE WO CON INDICATIONS: chronic back pain with radiculopathy, worsening TECHNIQUE: Noncontrast sagittal T1 spin echo and T2 fast spin echo, sagittal STIR, foraminal oblique sagittal T2 fast spin echo, and axial gradient echo or T2 fast spin echo through the cervical spine. COMPARISON: [facility], MR, MR CERVICAL SPINE WO CON, 03/26/2021, 16:36. FINDINGS: Image quality: Excellent. Alignment and Curvature: Some loss of the normal cervical lordosis otherwise unremarkable. Bone Marrow: Marrow demonstrates normal overall signal. Spinal Cord: Visualized spinal cord has normal size and signal. No cerebellar tonsillar herniation. Paraspinous Soft Tissues: No paravertebral masses. Prevertebral soft tissues are normal in thickness. C2-C3: No significant central spinal or neural foraminal stenosis. C3-C4: Disc osteophyte complex mildly effacing ventral thecal sac resulting in some mild central spinal stenosis without significant neural foraminal stenosis. C4-C5: Mild central disc osteophyte complex effacing ventral thecal sac. Uncovertebral joint hypertrophy. Mild right neural foraminal stenosis. C5-C6: Congenitally short pedicles. Disc osteophyte complex broad-based effacing ventral thecal sac resulting in moderate central spinal stenosis. Uncovertebral joint hypertrophy and facet disease resulting in some neural foraminal stenosis bilaterally. C6-C7: Congenitally short pedicles. Broad-based disc osteophyte complex. Overall moderate central spinal stenosis. Accompanying facet disease and uncovertebral joint hypertrophy results in moderate to severe left and moderate right neural foraminal stenosis. C7-T1: No significant central spinal or neural foraminal stenosis. IMPRESSION: Multilevel cervical spondylotic degenerative change overall similar in appearance to the prior study detailed above. Normal cord signal and cord caliber. Dictated by: Brodie Tse M.D. on 03/28/2024 at 8:39 Approved by: Brodie Tse M.D. on 03/28/2024 at 8:44
== END ==
LOC: MRI 09:01
PROVIDERS: PCP Family Medicine; Referring Provider Family Medicine; Visit Provider Family Medicine
DX: M47.812 Spondylosis without myelopathy or radiculopathy, cervical region; M48.02 Spinal stenosis, cervical region; M47.816 Spondylosis without myelopathy or radiculopathy, lumbar region; M47.817 Spondylosis without myelopathy or radiculopathy, lumbosacral region; M48.061 Spinal stenosis, lumbar region without neurogenic claudication; M48.07 Spinal stenosis, lumbosacral region; M54.2 Cervicalgia; M54.9 Dorsalgia, unspecified
CPT/HCPCS: 72141; 72148

== ENCOUNTER → 2024-04-29 11:55 | Outpatient (CLI) | payer MEDICARE, SELFPAY ==
[2024-03-09 10:15] VITALS: BMI 37.1
[2024-04-29 14:47] LABS: Ur Creatinine Normal (Normal); Ur Specific Gravity Normal (Normal); Urine pH Normal (Normal)
[2024-04-29 14:48] LABS: Urine Cocaine Negative (Negative); Urine Tetrahydrocannabinol Negative (Negative)
[2024-04-29 14:49] LABS: UR Morphine/Opiate cutoff 300 Negative (Negative); Urine Amphetamines Negative (Negative); Urine Barbiturates Negative (Negative); Urine Benzodiazepines Positive (Negative); Urine MDMA Negative (Negative); Urine Methadone Negative (Negative); Urine Methamphetamines Negative (Negative); Urine Oxycodone Positive (Negative); Urine Phencyclidine Negative (Negative); Urine Tricyclic Antidepressant Positive (Negative)
== END ==
PROVIDERS: PCP Family Medicine; Referring Provider Family Medicine; Visit Provider Family Medicine
DX: G89.4 Chronic pain syndrome (principal); F11.90 Opioid use, unspecified, uncomplicated
CPT/HCPCS: 80305

== ENCOUNTER → 2024-05-14 13:36 | Outpatient (CLI) | payer MEDICARE, SELFPAY ==
[2024-03-09 10:15] VITALS: BMI 37.1
--- NOTE | 2024-05-14 13:37 | DI.RAD.S_ITS ---
PROCEDURE: XR FACIAL BONES MIN 3V INDICATIONS: Left orbital trauma TECHNIQUE: 3 views of the facial bones were acquired. COMPARISON: [facility], CR, XR FACIAL BONES MIN 3V, 01/31/2020, 12:25. FINDINGS: Sinuses: Visualized sinuses demonstrate no air-fluid levels or mucosal thickening. Bones: No fractures. No suspicious bony lesions. Orbital rims and zygomatic arches appear intact. Soft tissues: No suspicious soft tissue densities. IMPRESSION: No acute abnormality. Approved by: Byron Montano M.D. on 05/14/2024 at 13:39
== END ==
PROVIDERS: PCP Family Medicine; Referring Provider Registered Nurse; Visit Provider Registered Nurse
DX: H57.12 Ocular pain, left eye (principal)
CPT/HCPCS: 70150

== ENCOUNTER 2024-05-17 11:30 | Emergency (ER) | payer MEDICARE, SELFPAY ==
[2024-03-09 10:15] VITALS: BMI 37.1
[2024-05-17] VITALS (9 sets, daily range): BP systolic 134–153; BP diastolic 86–96; PULSE 74–85; RESP 18–25; TEMP 36.6; O2SAT 97–100; BMI 30.9
--- NOTE | 2024-05-17 11:58 | EKG_ITS ---
[address] [id number] [address] [address] Test Date: 2024-05-17 Pat Name: Bisi López Department: [facility] Room: Gender: Female [employer] Worker: : 1970 Requested By: Order Number: [id number] Reading MD: Олег Peña Measurements Intervals [place] Rate: 72 P: 30 CT: 156 QRS: -3 QRSD: 80 T: 20 QT: 402 QTc: 440 Interpretive Statements Normal sinus rhythm Electronically Signed On 05-18-2024 23:45:05 PST by Олег Peña
--- NOTE | 2024-05-17 13:20 | PC.NURSE ---
Pt requested to leave w/o being seen by physician.
== END 2024-05-17 13:21 | disposition left against medical advice (07) ==
PROVIDERS: Emergency Provider Emergency Medicine; PCP Family Medicine
DX: R03.0 Elevated blood-pressure reading, without diagnosis of hypertension (principal)
CPT/HCPCS: 93005; 99281

== ENCOUNTER → 2024-07-29 11:02 | Outpatient (CLI) | payer MEDICARE, SELFPAY ==
[2024-03-09 10:15] VITALS: BMI 37.1
[2024-07-29 13:20] LABS: Alanine Aminotransferase 24 IU/L (<35); Albumin 4.5 g/dL (3.5-5.0); Albumin Globulin Ratio 1.9 (1.0-2.8); Alkaline Phosphatase 77 U/L (38-126); Aspartate Aminotransferase 27 IU/L (14-36); Bilirubin Total 0.5 mg/dL (0.2-1.3); Blood Urea Nitrogen 16 mg/dL (7-17); Calcium 9.4 mg/dL (8.4-10.2); Carbon Dioxide 27 mmol/L (22-32); Chloride 103 mmol/L (98-107); Cholesterol 204 mg/dL (140-199); Estimated Glomerular Filt Rate > 60 mL/min (>60); Globulin 2.4 g/dL (1.7-4.1); Glucose 83 mg/dL (70-100); HDL Cholesterol 59 mg/dL (40-60); HEMOLYSIS < 15 (0-50); LDL Cholesterol Calculated 121 mg/dL (<100); Potassium 4.7 mmol/L (3.4-5.1); Sodium 138 mmol/L (137-145); Total Protein 6.9 g/dL (6.3-8.2); Triglycerides 121 mg/dL (35-150)
[2024-07-29 15:06] LABS: Microalbumin Urine Random < 0.6 mg/dL (0-1.6)
== END ==
LOC: LAB 11:03
PROVIDERS: PCP Family Medicine; Referring Provider Family Medicine; Visit Provider Family Medicine
DX: Z13.1 Encounter for screening for diabetes mellitus (principal); I10 Essential (primary) hypertension
CPT/HCPCS: 36415; 80053; 80061; 82043; 82570; 83036

== ENCOUNTER → 2024-12-21 10:48 | Outpatient (CLI) | payer MEDICARE, SELFPAY ==
[2024-03-09 10:15] VITALS: BMI 37.1
--- NOTE | 2024-12-21 10:49 | DI.RAD.S_ITS ---
PROCEDURE: XR LUMBAR SPINE 2-3V INDICATIONS: pain TECHNIQUE: 3 views of the lumbar spine were acquired. COMPARISON: None. FINDINGS: Lumbar spine curvature and alignment: Slight leftward curve appreciated Bones: There are no osseous abnormalities. Disc spaces: Moderate L2-3, mild L3-4 and moderate L5-S1 degenerative disc disease. Moderate L3-4 through L5-S1 degenerative facet disease Soft tissues: No soft tissue swelling, calcification or mass. IMPRESSION: Degeneration Straightening lordotic curve suggesting muscle spasm. Antispasmodics may be therapeutic Dictated by: Wilian Phan M.D. on 12/22/2024 at 10:30 Approved by: Wilian Phan M.D. on 12/22/2024 at 10:31
--- NOTE | 2024-12-21 10:49 | DI.RAD.S_ITS ---
PROCEDURE: XR HIP W PEL IF DONE LT 2V INDICATIONS: pain TECHNIQUE: Two views of the hip were acquired. COMPARISON: [facility], CR, XR HIP W PEL IF DONE NABILA 3TO4V, 03/12/2023, 12:44. FINDINGS: Bones: There are no osseous abnormalities. SI and hip joints: Both hips are unremarkable. Mild bilateral SI degeneration. Moderate L5-S1 degenerative disc and facet disease Soft tissues: No soft tissue swelling, calcification or mass. IMPRESSION: Mild bilateral SI degeneration. Both hips are normal Dictated by: Wilian Phan M.D. on 12/22/2024 at 10:31 Approved by: Wilian Phan M.D. on 12/22/2024 at 10:32
== END ==
PROVIDERS: PCP Family Medicine; Referring Provider Family Medicine; Visit Provider Family Medicine
DX: M51.369 Other intervertebral disc degeneration, lumbar region without mention of lumbar back pain or lower extremity pain (principal); M51.379 Other intervertebral disc degeneration, lumbosacral region without mention of lumbar back pain or lower extremity pain; M47.816 Spondylosis without myelopathy or radiculopathy, lumbar region; M47.817 Spondylosis without myelopathy or radiculopathy, lumbosacral region; M47.898 Other spondylosis, sacral and sacrococcygeal region; R52 Pain, unspecified
CPT/HCPCS: 72100; 73502

== ENCOUNTER → 2025-01-06 11:08 | Outpatient (CLI) | payer MEDICARE, SELFPAY ==
[2024-03-09 10:15] VITALS: BMI 37.1
--- NOTE | 2025-01-06 11:09 | DI.MG.S_ITS ---
MM screening mammo BI: 01/06/2025. BI-RADS: 1 CLINICAL: 54-year old female for bilateral screening mammogram. Tyrer-Cuzick lifetime risk of 18.6%. Current reported family history of breast cancer: mother. PRIOR EXAMS: 12/17/2023, 11/09/2020, 06/21/2019, 05/31/2018, 12/07/2017, 05/05/2017. MAMMOGRAPHY TECHNIQUE: 2D and 3D (tomosynthesis) digital mammographic views obtained, with additional images as needed for full coverage. Current study was also evaluated with a Computer Aided Detection (CAD) system. DENSITY B. There are scattered areas of fibroglandular density. MAMMOGRAPHY FINDINGS Bilateral: No suspicious mass, asymmetry, microcalcification, or other abnormality seen. IMPRESSION: * No evidence of malignancy. RECOMMENDATIONS Bilateral * Annual screening mammography. OVERALL ASSESSMENT CATEGORY BI-RADS-1: Negative. The [employer] recommends annual screening mammography beginning at age 40 for women with average risk of breast cancer. ELECTRONICALLY SIGNED: Camelia Loay M.D. on 01/06/2025 at 11:45:41 PM PT Interpreting Station ID: [id number]
== END ==
LOC: MAMMO 11:08
PROVIDERS: PCP Family Medicine; Referring Provider Family Medicine; Visit Provider Family Medicine
DX: Z12.31 Encounter for screening mammogram for malignant neoplasm of breast (principal); Z80.3 Family history of malignant neoplasm of breast
CPT/HCPCS: 77063; 77067

== ENCOUNTER → 2025-03-28 14:26 | Outpatient (CLI) | payer MEDICARE, SELFPAY ==
[2024-03-09 10:15] VITALS: BMI 37.1
== END ==
PROVIDERS: PCP Family Medicine; Referring Provider Family Medicine; Visit Provider Family Medicine
DX: R32 Unspecified urinary incontinence (principal)
CPT/HCPCS: 87086

== ENCOUNTER → 2025-04-12 09:37 | Outpatient (CLI) | payer MEDICARE, SELFPAY ==
[2024-03-09 10:15] VITALS: BMI 37.1
--- NOTE | 2025-04-12 09:38 | DI.CT.S_ITS ---
PROCEDURE: CT SINUS SCREEN WO CON INDICATIONS: sinus preasure TECHNIQUE: Noncontrast 3.0 mm axial images acquired from the frontal sinuses to the mid- sella, with coronal and sagittal reformats. For radiation dose reduction, the following was used: automated exposure control, adjustment of mA and/or kV according to patient size. COMPARISON: None. FINDINGS: Image quality: Excellent. Maxillary Sinuses: No bony remodeling or destruction. Sinuses are clear. Ethmoid Air Cells: No bony remodeling or destruction. Sinuses are clear. Sphenoid Sinuses: No bony remodeling or destruction. Sinuses are clear. Frontal Sinuses: No bony remodeling or destruction. Sinuses are clear. Ostiomeatal Complexes: Ostiomeatal complexes are patent. No [place] cells. Miscellaneous: Visualized intra-orbital contents are normal. No samuel bullosa or paradoxical turbinate curvature. Mild leftward nasal septal deviation with spurring. Moderate to severe left temporomandibular joint degeneration. IMPRESSION: The paranasal sinuses are clear. Dictated by: Surjit Ku M.D. on 04/12/2025 at 12:22 Approved by: Surjit Ku M.D. on 04/12/2025 at 12:24
== END ==
PROVIDERS: PCP Family Medicine; Referring Provider Family Medicine; Visit Provider Family Medicine
DX: J34.89 Other specified disorders of nose and nasal sinuses (principal); J32.4 Chronic pansinusitis
CPT/HCPCS: 70486